=== PATIENT | male | born 1945 | race Caucasian/White ===

== ENCOUNTER → 2016-11-14 | Outpatient (CLI) | payer MEDICARE ==
--- NOTE | 2016-11-14 09:50 | US ---
EXAMINATION TYPE: US prostate transrectal DATE OF EXAM: 11/14/2016 9:34 AM COMPARISON: NONE CLINICAL HISTORY: R97.20 elevated psa. This examination was performed using the transrectal probe. EXAM MEASUREMENTS: Gland Size: 4.9 x 2.3 x 4.4cm Volume: 26.5ml Predicted PSA: 3.18 Actual PSA (if available):4.4 Heterogeneous peripheral zone with no distinct nodule visualized IMPRESSION: No distinct or suspicious lesions identified. Predicted PSA = volume x 0.12 ng/ml Calculated Volume = 0.5236 x L x W x H
== END | disposition home or self-care (01) ==
LOC: RADUSMAIN 08:58
PROVIDERS: ATTEND Family Medicine
DX: R97.20 Elevated prostate specific antigen [PSA] (principal)
CPT/HCPCS: 76872

== ENCOUNTER → 2018-07-24 | Outpatient (CLI) | payer MEDICARE ==
--- NOTE | 2018-07-24 18:55 | ECHOF ---
Referral Reason:I48.91 Unspecified atrial fibrillation MEASUREMENTS -------- HEIGHT: 180.3 cm WEIGHT: 82.1 kg BP: 149/73 IVSd: 1.1 cm (0.6 - 1.1) LVIDd: 4.3 cm (3.9 - 5.3) LVPWd: 1.0 cm (0.6 - 1.1) IVSs: 1.8 cm LVIDs: 2.7 cm LVPWs: 1.8 cm LA Diam: 3.2 cm (2.7 - 3.8) RVIDd: 3.0 cm (< 3.3) LAESV Index (A-L): 28.82 ml/m Ao Diam: 3.6 cm (2.0 - 3.7) EPSS: 0.3 cm MV E Juan: 0.91 m/s MV DecT: 212 ms MV A Juan: 0.53 m/s MV E/A Ratio: 1.72 AV maxP.37 mmHg AV meanP.87 mmHg RAP: 5.00 mmHg RVSP: 32.12 mmHg MV EF SLOPE: 67.95 mm/s (70 - 150) MV EXCURSION: 14.88 mm (> 18.000) FINDINGS -------- Sinus rhythm with extra systolic beats. This was a technically good study. The left ventricular size is normal. Left ventricular wall thickness is normal. Overall left vent ricular systolic function is normal with, an EF between 55 - 60 %. The right ventricle is normal in size. LA is midly dilated 29-33ml/m2. The right atrium is normal in size. Peak/mean gradient across the Aortic Valve is 33.37mmHg / 17.87mmHg. Normally functioning bioprosth etic valve. There is trivial lev-prosthetic regurgitation of the bioprosthetic aortic valve. The mitral valve leaflets are mildly thickened. Mild mitral annular calcification present. Mild m itral regurgitation is present. Mild tricuspid regurgitation present. Right ventricular systolic pressure is normal at < 35 mmHg. Trace/mild (physiologic) pulmonic regurgitation. The aortic root size is normal. 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 Normal inferior vena cava with normal inspiratory collapse consistent with estimated right atrial pre ssure of 5 mmHg. There is no pericardial effusion. CONCLUSIONS -------- 1. Sinus rhythm with extra systolic beats. 2. This was a technically good study. 3. The left ventricular size is normal. 4. Left ventricular wall thickness is normal. 5. Overall left ventricular systolic function is normal with, an EF between 55 - 60 %. 6. The right ventricle is normal in size. 7. LA is midly dilated 29-33ml/m2. 8. The right atrium is normal in size. 9. Peak/mean gradient across the Aortic Valve is 33.37mmHg / 17.87mmHg. 10. Normally functioning bioprosthetic valve. 11. There is trivial lev-prosthetic regurgitation of the bioprosthetic aortic valve. 12. The mitral valve leaflets are mildly thickened. 13. Mild mitral annular calcification present. 14. Mild mitral regurgitation is present. 15. Mild tricuspid regurgitation present. 16. Right ventricular systolic pressure is normal at < 35 mmHg. 17. Trace/mild (physiologic) pulmonic regurgitation. 18. The aortic root size is normal. 19. 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 20. Normal inferior vena cava with normal inspiratory collapse consistent with estimated right atrial pressure of 5 mmHg. 21. There is no pericardial effusion. RECONSTRUCTIVE DENTIST: Veda Lane RDCS
== END | disposition home or self-care (01) ==
LOC: RADECHMAIN 12:56
PROVIDERS: ATTEND Family Medicine
DX: I08.1 Rheumatic disorders of both mitral and tricuspid valves (principal); I48.91 Unspecified atrial fibrillation; Z95.2 Presence of prosthetic heart valve
CPT/HCPCS: 93306

== ENCOUNTER 2018-08-15 16:22 | Inpatient (IN) | payer MEDICARE ==
--- NOTE | 2018-08-15 16:31 | ED ---
Altered Mental Status HPI - General Stated Complaint: poss stroke Time Seen by Provider: 08/15/18 16:22 Source: EMS, RN notes reviewed, old records reviewed Mode of arrival: EMS - History of Present Illness Initial Comments: This is a 73-year-old male with history of atrial fibrillation renal failure syncope in the past under clap headache and history of hypertension who apparently was down his basement just prior to arrival by EMS today his urged him scream found him unresponsive on the floor. EMS arrived he had a glucose 131 he was very combative for 10-15 minutes he did require 5 mg of IM Versed. He demonstrated no focal deficits were was confused. He is brought here for evaluation. MD Complaint: confusion, decreased responsiveness - Related Data Home Medications Medication Instructions Recorded Confirmed Aspirin EC [Ecotrin] 325 mg PO HS 08/15/18 08/15/18 Verapamil [Isoptin] 80 mg PO DAILY 08/15/18 08/15/18 Allergies Allergy/AdvReac Type Severity Reaction Status Date / Time No Known Allergies Allergy Unverified 08/15/18 16:58 Review of Systems ROS Statement: Those systems with pertinent positive or pertinent negative responses have been documented in the HPI. ROS Other: All systems not noted in ROS Statement are negative. General Exam - General Exam Comments Initial Comments: This is a well-developed well-nourished obtunded male his pupils appear to be pinpoint. General appearance: obtunded Head exam: Present: atraumatic, normocephalic, normal inspection Eye exam: Present: other (Pupils are pinpoint he does demonstrate extraocular movement.) ENT exam: Present: normal exam, mucous membranes moist Neck exam: Present: normal inspection. Absent: tenderness, meningismus, lymphadenopathy Respiratory exam: Present: normal lung sounds bilaterally. Absent: respiratory distress, wheezes, rales, rhonchi, stridor Cardiovascular Exam: Present: regular rate, normal rhythm, normal heart sounds. Absent: systolic murmur, diastolic murmur, rubs, gallop, clicks GI/Abdominal exam: Present: soft, normal bowel sounds. Absent: distended, tenderness, guarding, rebound, rigid Extremities exam: Present: normal inspection, full ROM, normal capillary refill. Absent: tenderness, pedal edema, joint swelling, calf tenderness Back exam: Present: normal inspection Neurological exam: Present: alert, altered, CN II-XII intact, reflexes normal. Absent: motor sensory deficit Psychiatric exam: Present: normal affect, normal mood Skin exam: Present: warm, dry, intact, normal color. Absent: rash Course Vital Signs 08/15/18 08/15/18 08/15/18 16:31 16:47 17:00 Temperature 98.3 F Pulse Rate 95 97 82 Respiratory 16 16 16 Rate Blood Pressure 117/76 134/87 122/87 O2 Sat by Pulse 94 L 94 L 98 Oximetry - Reevaluation(s) Reevaluation #1: 08/15/18 16:37 Reevaluation patient reveals he is awake and alert he is confused as to where he hasn't how he got here he does not remember any incident in his basement prior to arrival. Reevaluation #2: 08/15/18 16:58 The patient remains awake and alert this time I did discuss the findings with the patient's she heard him without the screen that she heard in the basement he seemed to have some tonic-clonic activity of his upper extremities lasting several minutes. Per his she did have evidence in the past of activity leg deer and a headlight looks she states she lifted up and thought it might be consistent with temporal lobe seizures or lymphoid deficiencies. She did buy supplements for him and he has not had further symptoms until today over the past year. Reevaluation #3: 08/15/18 18:26 Reevaluation patient reveals he is awake alert oriented 3 no distress family members or present she has no prior history of seizure. Medical Decision Making - Medical Decision Making I did discuss findings with the patient family members were present patient be admitted for evaluation of new onset seizure. I did discuss case with the hospitalist covering Dr. Samuels. Neurology will be consulted - Lab Data Result diagrams: 08/15/18 16:25 08/15/18 16:25 Lab Results 08/15/18 08/15/18 08/15/18 Range/Units 16:25 16:25 16:25 WBC 7.2 (3.8-10.6) k/uL RBC 4.74 (4.30-5.90) m/uL Hgb 14.2 (13.0-17.5) gm/dL Hct 43.2 (39.0-53.0) % MCV 91.0 (80.0-100.0) fL MCH 30.0 (25.0-35.0) pg MCHC 32.9 (31.0-37.0) g/dL RDW 13.2 (11.5-15.5) % Plt Count 172 (150-450) k/uL Neutrophils % 72 % Lymphocytes % 18 % Monocytes % 5 % Eosinophils % 2 % Basophils % 1 % Neutrophils # 5.2 (1.3-7.7) k/uL Lymphocytes # 1.3 (1.0-4.8) k/uL Monocytes # 0.4 (0-1.0) k/uL Eosinophils # 0.2 (0-0.7) k/uL Basophils # 0.1 (0-0.2) k/uL PT (9.0-12.0) sec INR (<1.2) APTT (22.0-30.0) sec Sodium (137-145) mmol/L Potassium (3.5-5.1) mmol/L Chloride (98-107) mmol/L Carbon Dioxide (22-30) mmol/L Anion Gap mmol/L BUN (9-20) mg/dL Creatinine (0.66-1.25) mg/dL Est GFR (CKD-EPI)AfAm (>60 ml/min/1.73 sqM) Est GFR (CKD-EPI)NonAf (>60 ml/min/1.73 sqM) Glucose (74-99) mg/dL POC Glucose (mg/dL) (75-99) mg/dL POC Glu Shingle Carrier ID Calcium (8.4-10.2) mg/dL Total Bilirubin (0.2-1.3) mg/dL AST (17-59) U/L ALT (21-72) U/L Alkaline Phosphatase (38-126) U/L Ammonia 52 H (<30) umol/L Total Creatine Kinase 214 H (55-170) U/L CK-MB (CK-2) 2.2 (0.0-2.4) ng/mL CK-MB (CK-2) Rel Index 1.0 Troponin I <0.012 (0.000-0.034) ng/mL Total Protein (6.3-8.2) g/dL Albumin (3.5-5.0) g/dL Serum Alcohol mg/dL 08/15/18 08/15/18 08/15/18 Range/Units 16:25 16:25 16:47 WBC (3.8-10.6) k/uL RBC (4.30-5.90) m/uL Hgb (13.0-17.5) gm/dL Hct (39.0-53.0) % MCV (80.0-100.0) fL MCH (25.0-35.0) pg MCHC (31.0-37.0) g/dL RDW (11.5-15.5) % Plt Count (150-450) k/uL Neutrophils % % Lymphocytes % % Monocytes % % Eosinophils % % Basophils % % Neutrophils # (1.3-7.7) k/uL Lymphocytes # (1.0-4.8) k/uL Monocytes # (0-1.0) k/uL Eosinophils # (0-0.7) k/uL Basophils # (0-0.2) k/uL PT 10.7 (9.0-12.0) sec INR 1.1 (<1.2) APTT 21.8 L (22.0-30.0) sec Sodium 140 (137-145) mmol/L Potassium 4.4 (3.5-5.1) mmol/L Chloride 109 H (98-107) mmol/L Carbon Dioxide 17 L (22-30) mmol/L Anion Gap 14 mmol/L BUN 25 H (9-20) mg/dL Creatinine 1.38 H (0.66-1.25) mg/dL Est GFR (CKD-EPI)AfAm 58 (>60 ml/min/1.73 sqM) Est GFR (CKD-EPI)NonAf 50 (>60 ml/min/1.73 sqM) Glucose 104 H (74-99) mg/dL POC Glucose (mg/dL) 101 H (75-99) mg/dL POC Glu Shingle Carrier ID Sasha Aguilar Calcium 9.1 (8.4-10.2) mg/dL Total Bilirubin 0.6 (0.2-1.3) mg/dL AST 35 (17-59) U/L ALT 31 (21-72) U/L Alkaline Phosphatase 75 (38-126) U/L Ammonia (<30) umol/L Total Creatine Kinase (55-170) U/L CK-MB (CK-2) (0.0-2.4) ng/mL CK-MB (CK-2) Rel Index Troponin I (0.000-0.034) ng/mL Total Protein 6.8 (6.3-8.2) g/dL Albumin 4.0 (3.5-5.0) g/dL Serum Alcohol <10 mg/dL - EKG Data EKG shows normal: sinus rhythm (Normal sinus rhythm of 89. Interval 136 QRS duration 80 QT since QTC 362/440) - Radiology Data Radiology results: report reviewed (I did review the imaging and report no acute findings.), image reviewed Critical Care Time Critical Care Time: Yes Critical Care Time: 39 minutes of critical care time which includes initial monitoring the EMS run and discussed with paramedics history physical labs x-rays multiple reevaluation the patient review of old charting and imaging and lab work. Several discussions with family members discuss with the admitting physician admission orders and documentation the above is also did include review of old charting available Disposition Clinical Impression: Seizure, Renal insufficiency, Altered mental status Disposition: ADMITTED IP TO THIS [facility] Condition: Stable Referrals: Skyler Samuels MD [Primary Care Provider] - 1-2 days
[2018-08-15 16:49] LABS: Glucose,Whole Blood 101 mg/dL (75-99)
--- NOTE | 2018-08-15 16:56 | CT ---
EXAMINATION TYPE: CT brain wo con for TPA DATE OF EXAM: 08/15/2018 COMPARISON: 03/04/2015 HISTORY: POSS STROKE/NEURO DEFICIT CT DLP: 1205.4 mGycm Automated exposure control for dose reduction was used. FINDINGS: There is mild cerebral cortical atrophy. There is no mass effect nor midline shift. There is no sign of intracranial hemorrhage. Calvarium is intact. There are 3 to 4 mm tiny lacunar infarcts in the cau date nucleus bilaterally. 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 NO ACUTE INTRACRANIAL ABNORMALITY.
[2018-08-15 16:58] LABS: Basophils # (A) 0.1 k/uL (0-0.2); Basophils % (A) 1 %; Eosinophils # (A) 0.2 k/uL (0-0.7); Eosinophils % (A) 2 %; HCT 43.2 % (39.0-53.0); HGB 14.2 gm/dL (13.0-17.5); Lymphocytes # (A) 1.3 k/uL (1.0-4.8); Lymphocytes % (A) 18 %; MCHC 32.9 g/dL (31.0-37.0); Mean Platelet Volume 8.1; Monocytes # (A) 0.4 k/uL (0-1.0); Monocytes % (A) 5 %; Neutrophils # (A) 5.2 k/uL (1.3-7.7); Neutrophils % (A) 72 %; Platelet Count 172 k/uL (150-450); RBC 4.74 m/uL (4.30-5.90); RDW 13.2 % (11.5-15.5); WBC 7.2 k/uL (3.8-10.6)
[2018-08-15 17:12] LABS: INR 1.1 (<1.2); Prothrombin Time 10.7 sec (9.0-12.0)
[2018-08-15 17:16] LABS: ALT 31 U/L (21-72); AST 35 U/L (17-59); Alcohol <10 mg/dL; Alkaline Phosphatase 75 U/L (38-126); Anion Gap 14 mmol/L; Blood Urea Nitrogen 25 mg/dL (9-20); Calcium 9.1 mg/dL (8.4-10.2); Carbon Dioxide 17 mmol/L (22-30); Chloride 109 mmol/L (98-107); Glucose 104 mg/dL (74-99); Potassium 4.4 mmol/L (3.5-5.1); Sodium 140 mmol/L (137-145); Total Bilirubin 0.6 mg/dL (0.2-1.3); Total Protein 6.8 g/dL (6.3-8.2)
[2018-08-15 17:19] LABS: Creatine Kinase 214 U/L (55-170)
[2018-08-15 17:32] LABS: Creatine Kinase MB 2.2 ng/mL (0.0-2.4); Troponin I <0.012 ng/mL (0.000-0.034)
[2018-08-15 17:35] LABS: Partial Thromboplastin Time 21.8 sec (22.0-30.0)
[2018-08-15] MEDS ORDERED: NALOXONE 0.4 MG/ML 1 ML VIAL IV PRN (18:30)
[2018-08-15] MEDS ORDERED: ACETAMINOPHEN TAB 325 MG TAB PO PRN (18:30)
--- NOTE | 2018-08-15 18:47 | XR ---
EXAMINATION TYPE: XR chest 2V DATE OF EXAM: 08/15/2018 COMPARISON: 04/08/2016 HISTORY: Altered mental status TECHNIQUE: Frontal and lateral views of the chest are obtained. FINDINGS: There is no heart failure nor confluent pneumonic infiltrate. Costophrenic angles are tobi r. There are sternal wires. The bony thorax is intact. IMPRESSION: No active cardiopulmonary disease. Normal heart. No change.
[2018-08-15 19:21] LABS: Amphetamine Screen,Urine Not Detected (NotDetected); Barbiturate Screen,Urine Not Detected (NotDetected); Benzodiazepines Screen,Urine Not Detected (NotDetected); Cocaine Screen,Urine Not Detected (NotDetected); Methadone Screen, Urine Not Detected (NotDetected); Opiate Screen,Urine Not Detected (NotDetected); Oxycodone Screen, Urine Not Detected (NotDetected); Phencyclidine Screen,Urine Not Detected (NotDetected); Tricyclic Antidepressant,Urine Not Detected (NotDetected); Urn Cannabinoid Scrn Not Detected (NotDetected)
[2018-08-15 20:47] VITALS: BMI 24.3
[2018-08-15] MEDS: ASPIRIN 325 MG TAB PO SCH (20:59)
[2018-08-15] MEDS: SODIUM CHLORIDE 0.9% 1,000 ML IV SCH (21:31)
--- NOTE | 2018-08-15 21:59 | P.HPIM ---
History of Present Illness H&P Date: 08/15/18 Chief Complaint: new onset seizure 73-year-old male with history of A. fib status post ablation. Currently not on any anticoagulation Patient was at his baseline status of health he is very active on daily basis. However today while in the basement has upstairs heard weird sounds coming from her so went on and checked on him and she found him seizing he had contracture in his upper extremities and shaking of his lower extremities with his head turned to the right and up and frothing from his mouth she reported that this lasted for really long time she said she initiated a call to the 911 who put her on hold briefly she managed to go upstairs to get her purse and come downstairs and her was still seizing per her report. When he finally stopped seizing he was unresponsive and then later on he was confused EMS arrived and assisted him up the stairs from the basement where she with the noticed that he wasn't able to dorsiflex his left foot. The patient did not regain his alertness until he was in the emergency room. The patient doesn' t recall elected any of these events he denies any injuries due to the seizures he denies any tongue biting he denies loss of bladder or bowel control he denies any head injuries recently. Patient never had any seizures like this before. His blood sugar was checked by EMS and was 130. Patient recalls that a year ago he used to have moments where he with be doing some pill-rolling movements in his hands and lip smacking and staring in the blank and she wouldn't be able to get his attention during these events which are usually short-lived less than a minute this used to happen frequently until she started giving him some supplements to replenish vitamins and electrolytes and she said since then has disappeared she has mentioned os events to her doctor but no diagnosis was made. Currently patient feels comfortable denies any focal neurologic deficits denies any chest pain or trouble breathing denies any fevers or chills denies any headache changes in his vision or hearing. Patient only takes aspirin and verapamil at home. He takes verapamil to control his heartrate. He denies any drug of abuse he reports occasional alcohol and he denies any smoking. Patient is Jehovah witness and he would not like to have any blood products transfused. Patient did at that last night he had some nightmares and this morning when he woke up he felt tired and groggy a lot of benefit. Which is unusual for him. Review of Systems Pertinent positives as noted in HPI. 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 History of Any Multi-Drug Resistant Organisms: None Reported Past Surgical History: Tonsillectomy Additional Past Surgical History / Comment(s): Aortic valve replacement, bicep tendon surgery, shoulder surgery, carpal tunnel Past Anesthesia/Blood Transfusion Reactions: No Reported Reaction Past Psychological History: No Psychological Hx Reported Smoking Status: Former smoker Past Alcohol Use History: Occasional Past Drug Use History: None Reported - Past Family History Father Family Medical History: No Reported History, Cancer Additional Family Medical History / Comment(s): lung CA; Lung removed; blood clot from hip sx (per pt's ) Mother Family Medical History: CVA/TIA Medications and Allergies Home Medications Medication Instructions Recorded Confirmed Type Aspirin EC [Ecotrin] 325 mg PO HS 08/15/18 08/15/18 History Verapamil [Isoptin] 80 mg PO DAILY 08/15/18 08/15/18 History Allergies Allergy/AdvReac Type Severity Reaction Status Date / Time No Known Allergies Allergy Unverified 08/15/18 16:58 Physical Exam Vitals: Vital Signs Temp Pulse Pulse Resp BP BP Pulse Ox 08/15/18 20:00 97.7 F 78 17 159/83 97 08/15/18 19:33 97.7 F 87 17 159/83 96 08/15/18 19:00 98.4 F 82 16 135/85 98 08/15/18 17:00 82 16 122/87 98 08/15/18 16:47 97 16 134/87 94 L 08/15/18 16:31 98.3 F 95 16 117/76 94 L Intake and Output 08/15/18 08/15/18 08/15/18 06:59 14:59 22:59 Other: Voiding Method Urinal Weight 79 kg Constitutional: No acute distress, conversant, pleasant Eyes: Anicteric sclerae, moist conjunctiva, no lid-lag Pupils equal round reactive to light ENMT: NC/AT Oropharynx clear, no erythema, or exudates Neck: Supple, FROM, no masses, or JVD No carotid bruits No thyromegaly Lungs: Clear to auscultation Clear to percussion Normal respiratory effort, no accessory muscle use Cardiovascular: Heart regular in rate and rhythm, No murmurs, gallops, or rubs No peripheral edema Abdominal: Soft Nontender, no guarding, rebound or rigidity Abdomen moving with respiration Normoactive bowel sounds No hepatomegaly, No splenomegaly No palpable mass No abdominal wall hernia noted Skin: Diffusely looks dry and scaly patient has history of ichthyosis Areas of ecchymosis over his right hand Normal temperature, turgor No induration No subcutaneous nodules No ulcers Extremities: No digital cyanosis No clubbing Pedal pulses intact and symmetrical Radial pulses intact and symmetrical No calf tenderness Psychiatric: Alert and oriented to person, place and time Appropriate affect fair judgment Neuro Muscles Strength 5/5 in all 4 extremities Sensation to light touch grossly present throughout Cranial nerves II-XII grossly intact No focal sensory deficits Lymphatics: no palpable cervical or supraclavicular , or inguinal lymph nodes Results CBC & Chem 7: 08/15/18 16:25 08/15/18 16:25 Labs: Abnormal Lab Results - Last 24 Hours (Table) 08/15/18 08/15/18 08/15/18 Range/Units 16:25 16:25 16:25 APTT (22.0-30.0) sec Chloride 109 H (98-107) mmol/L Carbon Dioxide 17 L (22-30) mmol/L BUN 25 H (9-20) mg/dL Creatinine 1.38 H (0.66-1.25) mg/dL Glucose 104 H (74-99) mg/dL POC Glucose (mg/dL) (75-99) mg/dL Ammonia 52 H (<30) umol/L Total Creatine Kinase 214 H (55-170) U/L 08/15/18 08/15/18 Range/Units 16:25 16:47 APTT 21.8 L (22.0-30.0) sec Chloride (98-107) mmol/L Carbon Dioxide (22-30) mmol/L BUN (9-20) mg/dL Creatinine (0.66-1.25) mg/dL Glucose (74-99) mg/dL POC Glucose (mg/dL) 101 H (75-99) mg/dL Ammonia (<30) umol/L Total Creatine Kinase (55-170) U/L Thrombosis Risk Factor Assmnt - Choose All That Apply Any of the Below Risk Factors Present?: No Other Risk Factors: No Thrombosis Risk Factor Assessment Level: Very Low Risk Assessment and Plan Assessment: 73-year-old male with history of A. 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 Seizure was witnessed patient denies any history of head injury or any history of tonic-clonic seizures, did mention features suspicious for absence seizures in the past. Urine drug screen is negative, computed tomography scan of the head showed no acute abnormalities. patient is admitted for further workup and monitoring Plan: New onset seizure, tonic-clonic Seizure precautions Fall precautions Check EEG CT of the head no acute abnormalities Neuro consult Urine drug screen negative Follow-up electrolytes and blood glucose Acute kidney injury, most likely secondary to prerenal ATN Monitor urine output Follow-up renal function IV fluid hydration History of A. fib status post ablation not currently on any anticoagulation, CHADSVASC score of 1 Continue verapamil Currently in sinus rhythm History of carotid stenosis Check carotid ultrasound Congenital ichthyosis Currently stable Local emollient in lotions as needed Patient is Jehovah witness, refusing any blood products if needed. Surrogate decision-maker: *Patient CODE STATUS: Full code DVT prophylaxis: Heparin subcu 3 times a day Discussed with: Patient, ER, RN Anticipated discharge: 48-[address]: Home A total of 60 minutes was spent on the care of this complex patient more than 50 % of the time was spent in counseling and care coordination.
[2018-08-15] MEDS ORDERED: NITROGLYCERIN SL TABS 0.4 MG TAB SUBLINGUAL PRN (23:10)
[2018-08-15] MEDS ORDERED: MORPHINE SULFATE 2 MG/ML SYRINGE IVP STA (23:11)
--- NOTE | 2018-08-15 23:28 | US ---
EXAMINATION TYPE: US carotid duplex BILAT DATE OF EXAM: 08/15/2018 COMPARISON: NONE CLINICAL HISTORY: new onset seizure, h/o carotid stenosis. EXAM MEASUREMENTS: RIGHT: Peak Systolic Velocity (PSV) cm/sec ----- Right CCA: 65.3 ----- Right ICA: occluded ----- Right ECA: 131.9 ICA/CCA ratio: occluded RIGHT: End Diastole cm/sec ----- Right CCA: 11.5 ----- Right ICA: occluded ----- Right ECA: 25.4 LEFT: Peak Systolic Velocity (PSV) cm/sec -----Left CCA: 129.8 ----- Left ICA: 118.0 ----- Left ECA: 84.5 ICA/CCA ratio: 0.9 LEFT: End Diastole cm/sec ----- Left CCA: 23.4 ----- Left ICA: 27.4 ----- Left ECA: 19.5 VERTEBRALS (direction of flow): Right Vertebral: Antegrade Left Vertebral: Antegrade Rhythm: Normal Right ICA occluded. IMPRESSION: There is antegrade flow in the vertebral arteries. There is no flow demonstrated in the right internal carotid artery. Slight elevated velocity right external carotid artery consistent with 50-70% stenosis. There is 50-70% stenosis in the left common carotid artery distally. Criteria for Assigning % of Stenosis / Diameter reduction (Estimation based on the indirect measurements of the internal carotid artery velocities (ICA PSV). 1. Normal (no stenosis)=ICA PSV < 125 cm/s: ratio < 2.0: ICA EDV<40 cm/s. 2. Less than 50% stenosis=ICA PSV < 125 cm/s: ratio < 2.0: ICA EDV<40 cm/s. 3. 50 to 69% stenosis=ICA PSV of 125 to 230 cm/s: ration 2.0 ? 4.0: ICA EDV 40-100 cm/s. 4. Greater than 70% stenosis to near occlusion= ICA PSV > 230 cm/s: ratio > 4.0: ICA EDV > 100 cm/s. 5. Near occlusion= ICA PSV velocities may be low or undetectable: variable ratio and ICA EDV. 6. Total occlusion=unable to detect flow.
[2018-08-15] MEDS: HEPARIN SODIUM,PORCINE 5,000 UNIT/ML 1 ML VIAL SQ SCH (23:41)
[2018-08-16 05:55] LABS: Basophils # (A) 0.1 k/uL (0-0.2); Basophils % (A) 1 %; Eosinophils # (A) 0.3 k/uL (0-0.7); Eosinophils % (A) 4 %; HGB 13.4 gm/dL (13.0-17.5); Lymphocytes # (A) 1.2 k/uL (1.0-4.8); Lymphocytes % (A) 18 %; MCH 29.6 pg (25.0-35.0); MCHC 32.8 g/dL (31.0-37.0); MCV 90.3 fL (80.0-100.0); Mean Platelet Volume 7.2; Monocytes # (A) 0.6 k/uL (0-1.0); Monocytes % (A) 8 %; Neutrophils # (A) 4.6 k/uL (1.3-7.7); Neutrophils % (A) 67 %; Platelet Count 151 k/uL (150-450); RBC 4.54 m/uL (4.30-5.90); RDW 13.1 % (11.5-15.5); WBC 6.9 k/uL (3.8-10.6)
[2018-08-16 06:08] LABS: Albumin 3.4 g/dL (3.5-5.0); Calcium 9.1 mg/dL (8.4-10.2); Potassium 4.9 mmol/L (3.5-5.1); Total Bilirubin 0.6 mg/dL (0.2-1.3); Total Protein 6.1 g/dL (6.3-8.2)
[2018-08-16] MEDS: VERAPAMIL 80 MG TAB PO SCH (07:53)
[2018-08-16] MEDS ORDERED: LORazepam 2 MG/ML INJ IV PRN (09:08)
--- NOTE | 2018-08-16 11:28 | P.PN ---
Subjective Progress Note Date: 08/16/18 Principal diagnosis: Seizure Patient was seen and examined. No acute events overnight. No further seizure- like episodes since admission. Daughter patient reports multiple seizure-like attacks in the past. These episodes were different in the past, characterized by staring episodes and unresponsiveness. Patient reported no postictal confusion with these episodes. Daughter reported with these episodes happened after neck manipulation from a chiropractor. He denies any numbness weakness tingling of the extremities. No chest pain, shortness of breath or palpitations. Objective - Vital Signs Vital signs: Vital Signs Temp 98.1 F 08/16/18 07:58 Pulse 77 08/16/18 07:58 Resp 17 08/16/18 07:58 BP 134/74 08/16/18 07:58 Pulse Ox 98 08/16/18 07:58 Intake & Output 08/15/18 08/16/18 08/16/18 18:59 06:59 18:59 Intake Total 1100 240 Output Total 600 Balance 500 240 Weight 81.647 kg 86 kg Intake: Intake, IV Titration 600 Amount Sodium Chloride 0.9% 1, 600 000 ml @ 100 mls/hr IV . Q10H [facility] Rx#:[id number] Oral 500 240 Output: Urine 600 Other: Voiding Method Urinal Urinal - Exam General: [non toxic], [no distress], [appears at stated age] Derm: [warm], [dry] Head: [atraumatic], [normocephalic], [symmetric] Eyes: [EOMI], [no lid lag], [anicteric sclera] Mouth: [no lip lesion], [mucus membranes moist] Cardiovascular: [S1S2 reg], [no murmur], [positive posterior tibial pulse bilateral], Lungs: [CTA bilateral], [no rhonchi, no rales] , [no accessory muscle use] Abdominal: [soft], [ nontender to palpation], [no guarding], [no appreciable organomegaly] Ext: [no gross muscle atrophy], [no edema], [no contractures] Neuro: [ CN II-XI grossly intact], [no focal neuro deficits] Psych: [Alert], [oriented], [appropriate affect] - Labs CBC & Chem 7: 08/16/18 05:33 08/16/18 05:33 Labs: Abnormal Lab Results - Last 24 Hours (Table) 08/15/18 08/15/18 08/15/18 Range/Units 16:25 16:25 16:25 APTT (22.0-30.0) sec Chloride 109 H (98-107) mmol/L Carbon Dioxide 17 L (22-30) mmol/L BUN 25 H (9-20) mg/dL Creatinine 1.38 H (0.66-1.25) mg/dL Glucose 104 H (74-99) mg/dL POC Glucose (mg/dL) (75-99) mg/dL Ammonia 52 H (<30) umol/L Total Creatine Kinase 214 H (55-170) U/L Total Protein (6.3-8.2) g/dL Albumin (3.5-5.0) g/dL 08/15/18 08/15/18 08/16/18 Range/Units 16:25 16:47 05:33 APTT 21.8 L (22.0-30.0) sec Chloride 111 H (98-107) mmol/L Carbon Dioxide (22-30) mmol/L BUN 24 H (9-20) mg/dL Creatinine 1.43 H (0.66-1.25) mg/dL Glucose (74-99) mg/dL POC Glucose (mg/dL) 101 H (75-99) mg/dL Ammonia (<30) umol/L Total Creatine Kinase (55-170) U/L Total Protein 6.1 L (6.3-8.2) g/dL Albumin 3.4 L (3.5-5.0) g/dL Assessment and Plan Assessment: Assessment and Plan 1. Seizure like activity: Unprovoked, multiple different "staring-like" episodes in the past. Also happend twice after neck manipulations. Concerns for TIA/CVA. Will do CVA workup. CT brain shows small lacunar infarcts with no acute intracranial abnormalities. CUS shows 100% in the R internal carotid and 50-70% in L common carotid artery. Echocardiogram shows EF of 55-60%. Neurochecks, Fall and Seizure precautions. Continue ASA 325 mg PO QD and Lipitor 40 mg PO QHS. FU EEG, MRI brain, MRA head, Lipid panel and A1c. FU Neurology consult, PT/OT 2. Carotid stenosis: Re-displayed on CUS - 100% in the R internal carotid and 50 -70% in L common carotid artery. FU MRA head, Vascular Sx consult. 3. TRISH: BUN 24 Cr 1.42, possibly on CKD. Continue NS at 100 cc/h. Avoid nephrotoxins. Daily BMP 4. Rhabdomyolysis: CPK 214. Mild, likely secondary to seizure. Continue NS at 100 cc/h. Will recheck tomorrow. 4. Atrial fibrillation: s/p ablation. Stable. Continue Verapamil 80 mg PO QD. Telemetry monitoring. Keep Mg > 2, K > 4. 6. DVT Prophylaxis: Heparin 5000 units SUBCUT TID. Neurology consult pending. Stroke workup underway for possible TIA. Vascular surgery also on consult for carotid stenosis.
[2018-08-16] MEDS: HEPARIN SODIUM,PORCINE 5,000 UNIT/ML 1 ML VIAL SQ SCH ×3 (12:17→23:18)
--- NOTE | 2018-08-16 15:12 | MR ---
EXAMINATION TYPE: MR brain wo con DATE OF EXAM: 08/16/2018 COMPARISON: 08/15/2018 CT brain HISTORY: New onset seizure/CVA CONTRAST: Performed utilizing 0 mL intravenous Gadavist gadolinium contrast. TECHNIQUE: Multiplanar, multiecho imaging on a 3.0 Annabelle magnet is performed through the brain. Stud y is performed within 24 hours of arrival to the hospital. The craniovertebral junction is normal. The pituitary is normal. Diffusion-weighted imaging is performed. No abnormal hyperintensity is present to suggest an acute i ntracranial infarct or acute ischemic change. There are scattered periventricular hyperintensities on T2 and inversion recovery weighted sequences within the periventricular white matter, subcortical white matter of the left temporal lobe, couple s mall subcortical white matter changes in the right temporal lobe, into the centrum semiovale bilatera lly. These are nonspecific. Microvascular ischemic change could be considered. Other etiologies remai n within the differential. Old lacunar infarct within the left caudate head is evident. Ventricles and sulci are prominent for the patient age. IMPRESSIONS: 1. Atrophy with periventricular white matter ischemic type changes. 2. No suspicious changes to suggest acute ischemic changes.
--- NOTE | 2018-08-16 15:21 | MR ---
EXAMINATION TYPE: MR angio head wo con DATE OF EXAM: 08/16/2018 COMPARISON: HISTORY: New onset seizure/CVA CONTRAST: None TECHNIQUE: Multiplanar multiecho imaging on a 3.0 Annabelle magnet is performed through the [place] of [facility]. 3-D [id number] imaging is performed. Source images are reviewed on the computer in the axi al plane. Reconstructed images rotating on the computer are reviewed. FINDINGS: The right internal carotid artery is obstructed. Retrograde flow within the distal most rig ht internal carotid artery from a patent anterior communicating artery opacifies the right ophthalmic artery. Left ophthalmic artery appears normal. The left distal internal carotid artery bifurcates no rmally into A1 and M1 segments. Left M2 segments are normal. A2 segments appear normal. There is a patent left posterior communicating artery. Posterior cerebral vasculature appears normal. Basilar artery is unremarkable. The right vertebral artery is dominant. Note is made of patent right external carotid artery vessels. IMPRESSIONS: 1. Occlusion of the right internal carotid artery. Retrograde flow into the distal internal carotid a rtery into the ophthalmic artery is observed from a crossover flow from the anterior communicating ar fabiola which is patent. There is a patent posterior left communicating artery. Crossover flow opacifies the right middle cerebral artery branches.
--- NOTE | 2018-08-16 19:24 | P.CNNES ---
History of Present Illness Consult date: 08/16/18 History of Present Illness: The patient is a 73-year-old right-handed white male who states he was watching television when his hands started give becoming cold so he went to lay down to take a nap. He states the next thing he knew he woke up in the hospital. The patient's states that she heard a groaning grunting sound and when she came downstairs he was sitting in the recliner with his head turned to the right and his eyes rolled up and his eyes and head turn to the right. He was flexing both arms and he had tonic-clonic activity of upper extremities. This lasted for 2 or 3 minutes and afterward he slept and had gurgling respirations. EMS was called and he started to move and open his eyes but became soon combative. 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 Also 4 years ago he had seizure-like activity when he had episode of passing out with eyes wide open. He had 2 episodes like that in 1 day. The patient has a history of known right carotid occlusion. Patient states that 4 days ago he did go to the chiropractor. Patient also gives history of episodes where he has dj vu experienced and episodes of blank stares associated with automatisms of his hand and lips. 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 History of Any Multi-Drug Resistant Organisms: None Reported Past Surgical History: Tonsillectomy Additional Past Surgical History / Comment(s): Aortic valve replacement, bicep tendon surgery, shoulder surgery, carpal tunnel Past Anesthesia/Blood Transfusion Reactions: No Reported Reaction Past Psychological History: No Psychological Hx Reported Smoking Status: Former smoker Past Alcohol Use History: Occasional Past Drug Use History: None Reported - Past Family History Father Family Medical History: No Reported History, Cancer Additional Family Medical History / Comment(s): lung CA; Lung removed; blood clot from hip sx (per pt's ) Mother Family Medical History: CVA/TIA Medications and Allergies Home Medications Medication Instructions Recorded Confirmed Type Aspirin EC [Ecotrin] 325 mg PO HS 08/15/18 08/15/18 History Verapamil [Isoptin] 80 mg PO DAILY 08/15/18 08/15/18 History Allergies Allergy/AdvReac Type Severity Reaction Status Date / Time No Known Allergies Allergy Unverified 08/15/18 16:58 Physical Examination - Vital Signs Vital Signs: Vital Signs Temp Pulse Pulse Resp BP BP Pulse Ox 08/16/18 16:00 97.8 F 75 16 158/80 99 08/16/18 12:25 97.7 F 78 16 131/73 97 08/16/18 07:58 98.1 F 77 16 134/74 98 08/16/18 04:00 98.2 F 71 17 140/85 96 08/16/18 00:00 98.0 F 74 17 105/62 95 08/15/18 20:00 97.7 F 78 17 159/83 97 08/15/18 19:33 97.7 F 87 17 159/83 96 08/15/18 19:00 98.4 F 82 16 135/85 98 Intake and Output 08/16/18 08/16/18 08/16/18 06:59 14:59 22:59 Intake Total 1100 640 Output Total 600 600 Balance 500 40 Intake: Intake, IV Titration 600 Amount Sodium Chloride 0.9% 1, 600 000 ml @ 100 mls/hr IV . Q10H [facility] Rx#:[id number] Oral 500 640 Output: Urine 600 600 Other: Voiding Method Urinal Urinal Urinal Weight 86 kg - Constitutional General appearance: average body habitus - EENT EENT: PERRL, vision intact - Respiratory Respiratory: lungs clear - Cardiovascular Cardiovascular: regular rate, normal S1, normal S2 - Neurologic Neurologic examination: Mental status is awake alert and oriented 3. His speech is fluent there is no a aphasia or dysarthria next Cranial nerve examination: Cranial nerves II through XII are grossly intact next Motor examination: 5 out of 5 throughout Sensory examination: Intact to light touch Coordination: Intact DTRs: Intact symmetric Results - Laboratory Findings CBC and BMP: 11/08/18 05:33 08/16/18 05:33 Abnormal Lab Findings: Abnormal Labs 08/15/18 08/15/18 08/15/18 16:25 16:25 16:25 APTT Chloride 109 H Carbon Dioxide 17 L BUN 25 H Creatinine 1.38 H Glucose 104 H POC Glucose (mg/dL) Ammonia 52 H Total Creatine Kinase 214 H Total Protein Albumin 08/15/18 08/15/18 08/16/18 16:25 16:47 05:33 APTT 21.8 L Chloride 111 H Carbon Dioxide BUN 24 H Creatinine 1.43 H Glucose POC Glucose (mg/dL) 101 H Ammonia Total Creatine Kinase Total Protein 6.1 L Albumin 3.4 L Assessment and Plan (1) Generalized convulsive seizure Current Visit: Yes Status: Acute SNOMED Code(s): 646333891 (2) Carotid occlusion, right Current Visit: Yes Status: Acute SNOMED Code(s): 842909503158112 (3) Left carotid stenosis Current Visit: Yes Status: Acute Code(s): I65.22 - OCCLUSION AND STENOSIS OF LEFT CAROTID ARTERY SNOMED Code(s): 168462352591434 Plan: The patient is a 73-year-old man who had an episode of generalized convulsion yesterday. The patient gives history of prior episodes highly suspicious for complex partial epilepsy. Patient will be started on anticonvulsant medication , Keppra. He was advised of the [place] law regarding driving and operating motorized vehicles and told that he cannot operate a motorized vehicle until seizure-free for 6 months. He was also advised to avoid power tools and heavy machinery. He has had an MRI of the brain which showed atrophy was also evidence of an old lacunar infarct in the left caudate head. Continue aspirin 325 mg daily
[2018-08-16] MEDS: SODIUM CHLORIDE 0.9% 1,000 ML IV SCH (19:53)
[2018-08-16] MEDS: ASPIRIN 325 MG TAB PO SCH (20:00)
--- NOTE | 2018-08-16 20:56 | CONS ---
CONSULTATION This patient is a 73-year-old gentleman who has been admitted to [facility] with a history of seizure disorder which happened at home, and he was brought in to the hospital. No history of TIA or amaurosis fugax. The patient's blood sugar was 130. Patient has a history of atrial fibrillation. Patient also has a history of being [employer]an he would not take any blood product. PERSONAL HISTORY: Former smoker. PHYSICAL EXAMINATION: Patient was seen in his room. He was lying comfortably in bed. NECK: Supple. No bruit appreciated. CHEST: Clear to auscultation. ABDOMEN: Soft. Femoral pulses present. CENTRAL NERVOUS SYSTEM: Oriented to time and place. Normal motor function of upper lower extremities. Patient had an ultrasound of the neck which showed right side totally occluded, left side 50% to 79%. CT of the brain shows no infarct, chronic small vessel disease. 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 PLAN: At this point there is no role for surgical intervention. Most likely this is an incidental finding. Since patient has a right-side occlusion and left side is 50% to 79%, he needs close followup. Discussed with the and the family. I will follow him in my office in 2 weeks. MMODL / IJN: [id number] /
[2018-08-16] MEDS ORDERED: ATORVASTATIN 40 MG TAB PO SCH (21:00)
[2018-08-17 05:08] VITALS: RESP 18
[2018-08-17 06:58] LABS: Basophils # (A) 0.1 k/uL (0-0.2); Basophils % (A) 1 %; Eosinophils # (A) 0.4 k/uL (0-0.7); Eosinophils % (A) 6 %; HCT 45.9 % (39.0-53.0); HGB 14.6 gm/dL (13.0-17.5); Lymphocytes # (A) 1.5 k/uL (1.0-4.8); Lymphocytes % (A) 24 %; MCH 29.4 pg (25.0-35.0); MCHC 31.9 g/dL (31.0-37.0); MCV 92.2 fL (80.0-100.0); Monocytes # (A) 0.5 k/uL (0-1.0); Monocytes % (A) 8 %; Neutrophils # (A) 3.8 k/uL (1.3-7.7); Neutrophils % (A) 59 %; Platelet Count 166 k/uL (150-450); RBC 4.97 m/uL (4.30-5.90); RDW 13.2 % (11.5-15.5); WBC 6.4 k/uL (3.8-10.6)
[2018-08-17 07:11] LABS: Calcium 9.3 mg/dL (8.4-10.2); Potassium 4.8 mmol/L (3.5-5.1)
[2018-08-17] MEDS: HEPARIN SODIUM,PORCINE 5,000 UNIT/ML 1 ML VIAL SQ SCH (08:08)
[2018-08-17] MEDS: VERAPAMIL 80 MG TAB PO SCH (08:08)
--- NOTE | 2018-08-17 08:10 | P.DS ---
Providers Date of admission: 08/15/18 18:33 Expected date of discharge: 08/17/18 Attending physician: Mel Jj MD Consults: 08/15/18 18:31 Consult Physician Routine Consulting Provider: Francia Ponce Consult Reason/Comments: New-onset seizure Do you want consulting provider notified?: Yes 08/16/18 11:26 Consult Physician Urgent Consulting Provider: Carroll Carver Consult Reason/Comments: Carotid stenosis Do you want consulting provider notified?: Yes Primary care physician: Skyler Samuels - Discharge Diagnosis(es) (1) Carotid stenosis Current Visit: Yes Status: Acute (2) Rhabdomyolysis Current Visit: Yes Status: Acute (3) Atrial fibrillation Current Visit: Yes Status: Acute (4) Hyperammonemia Current Visit: Yes Status: Acute (5) Generalized convulsive seizure Current Visit: Yes Status: Acute (6) Renal insufficiency Current Visit: Yes Status: Acute Hospital Course: 73-year-old male with history of A. fib status post ablation. Currently not on any anticoagulation Patient was at his baseline status of health he is very active on daily basis. However today while in the basement has upstairs heard weird sounds coming from her so went on and checked on him and she found him seizing he had contracture in his upper extremities and shaking of his lower extremities with his head turned to the right and up and frothing from his mouth she reported that this lasted for really long time she said she initiated a call to the 911. The patient did not regain his alertness until he was in the emergency room. With regard to seizure-like activity, there is concern for TIA or stroke given that this has happened 2 previous times after neck manipulations. Stroke workup was initiated. CT brain showed small lacunar infarcts with no intracranial abnormalities. Carotid ultrasound showed 100% of the right internal carotid and 50-70% of the left common carotid artery. Echocardiogram showed ejection fraction of 55-60%. MRI brain showed no acute ischemic changes. MRA showed occlusion of the right internal carotid artery with retrograde flow. Vascular surgery was consulted at this time and recommended no surgical intervention and to close outpatient follow-up. Neurology was consulted as well and diagnosed the patient with complex seizures. They recommended no driving. He was started on Keppra 750 mg by mouth twice a day. EEG was performed and pending at the time of discharge. Patient seen and examined. No acute events overnight. No seizure-like activity since being admitted. He denies any chest pain, shortness of breath or palpitations. He is looking forward to going home. General: [non toxic], [no distress], [appears at stated age] Derm: [warm], [dry] Head: [atraumatic], [normocephalic], [symmetric] Eyes: [EOMI], [no lid lag], [anicteric sclera] Mouth: [no lip lesion], [mucus membranes moist] Cardiovascular: [S1S2 reg], [no murmur], [positive DP pulse bilateral] Lungs: [CTA bilateral], [no rhonchi, no rales] , [no accessory muscle use] Abdominal: [soft], [ nontender to palpation], [no guarding], [no appreciable organomegaly] Ext: [no gross muscle atrophy], [no edema], [no contractures] Neuro: [ CN II-XI grossly intact], [no focal neuro deficits] Psych: [Alert], [oriented], [appropriate affect] Assessment and Plan 1. Complex seizures: Unprovoked, multiple different "staring-like" episodes in the past. Also happend twice after neck manipulations. Concerns for TIA/CVA. Will do CVA workup. CT brain shows small lacunar infarcts with no acute intracranial abnormalities. CUS shows 100% in the R internal carotid and 50-70% in L common carotid artery. Echocardiogram shows EF of 55-60%. MRI brain negative for acute CVA. MRA confirms carotid US with retrograde flow. Lipid panel shows T. Chol 198, LDL 135 and HDL 37. Started on Keppra 750 mg PO BID as per Neuro. Neurochecks, Fall and Seizure precautions. Continue ASA 325 mg PO QD and Lipitor 40 mg PO QHS. FU EEG, A1c. FU Neurology consult, PT/OT 2. Carotid stenosis: Re-displayed on CUS - 100% in the R internal carotid and 50 -70% in L common carotid artery. Confirmed with MRA head. Vascular Sx consulted , no further intervention, FU outPT. 3. TRISH: BUN 24 to 23 Cr 1.42 to 1.33 GFR 49 to 53, possibly on CKD. Continue NS at 100 cc/h. Avoid nephrotoxins. FU BMP in outPT setting. 4. Elevated Ammonia: Level of 52. Patient is asymptomatic. Resolved on discharge. 5. Rhabdomyolysis: CPK 214. Mild, likely secondary to seizure. Encourage PO fluid intake. 6. Atrial fibrillation: s/p ablation. Stable. Continue Verapamil 80 mg PO QD. Telemetry monitoring. Keep Mg > 2, K > 4. 7. DVT Prophylaxis: Heparin 5000 units SUBCUT TID. CVA workup negative. Patient advised against driving. He has been started on Keppra. EEG read pending. PT eval pending. Likely DC today. This complex discharge took > 30 minutes. Pertinent Studies: CT brain MRI brain MRA head Echocardiogram EEG Carotid US CXR Patient Condition at Discharge: Stable Plan - Discharge Summary Discharge Rx Participant: No New Discharge Prescriptions: New Atorvastatin [Lipitor] 40 mg PO HS #30 tab levETIRAcetam [Keppra] 750 mg PO Q12HR #60 tab Continue Verapamil [Isoptin] 80 mg PO DAILY Aspirin EC [Ecotrin] 325 mg PO HS Discharge Medication List Aspirin EC [Ecotrin] 325 mg PO HS 08/15/18 [History] Verapamil [Isoptin] 80 mg PO DAILY 08/15/18 [History] Atorvastatin [Lipitor] 40 mg PO HS #30 tab 08/17/18 [Rx] levETIRAcetam [Keppra] 750 mg PO Q12HR #60 tab 08/17/18 [Rx] Follow up Appointment(s)/Referral(s): Skyler Samuels MD [Primary Care Provider] - 1-2 days Francia Ponce MD [STAFF PHYSICIAN] - 1 Week Carroll Carver MD [STAFF PHYSICIAN] - 2 Weeks Ambulatory/Diagnostic Orders: Basic Metabolic Panel [LAB.AMB] Time Frame: 3 Days, Location: None Selected Patient Instructions/Handouts: Recurrent Seizures in Adults (DC) Activity/Diet/Wound Care/Special Instructions: Diet: HEART healthy Please follow up with your primary care provider within 1-2 days of discharge. Please obtain a BMP blood draw within 3 days of discharge. The results will be followed up with your Primary care provider. Please follow up with Neurology Dr. Ponce with the appointment given to you. Please follow up with Vascular Surgery Dr. Carver with the appointment given to you. Please do not drive at this time until follow up with your Neurologist. Please take all medications as advised. Discharge Disposition: HOME SELF-CARE
[2018-08-17 08:15] VITALS: BP 142/89; PULSE 87; TEMP 97.7
[2018-08-17 17:04] LABS: Hemoglobin A1C 5.6 % (4.0-6.0)
--- NOTE | 2018-08-18 17:19 | EEG ---
ELECTROENCEPHALOGRAM REPORT DATE OF EE08/16/2018. REFERRING PHYSICIAN: Dr. Murry. CONSULTING INTERPRETING PHYSICIAN: Dr. Patricia Ponce ELECTROENCEPHALOGRAPHIC EXAMINATION REPORT: INDICATION FOR EXAMINATION: This patient is a 73-year-old male being evaluated for new onset seizure. Patient had a witnessed seizure at home noted by his . Patient has had multiple passing-out spells over the last several months. AGE: 73. EEG FINDINGS: A routine 21 channel awake digital EEG recording was accomplished utilizing the 10-20 international system with bipolar and referential montages. The background activity in the most alert resting state consists of a low to medium amplitude, fairly well- developed well sustained 7 Hz activity over the posterior head regions. This posterior rhythm attenuates to eye opening. There is a moderate amount of low amplitude 18-20 Hz beta activity seen in a generalized fashion. Muscle and movement artifact was observed on a few occasions during the tracing. Hyperventilation was not performed. Photic stimulation at flash frequencies of 2-30 Hz produced a minimal occipital driving response. No epileptiform discharges were seen. IMPRESSION: This EEG is within normal limits for the patient's age. The EEG failed to reveal any focal, lateralized, or epileptiform abnormalities. If a seizure disorder remains a strong clinical suspicion, then would consider a sleep deprived EEG for further evaluation. Clinical correlation is recommended. MMODL / BETHN: [id number] /
--- NOTE | 2018-08-22 09:32 | CDI ---
Last Revision, September 2017 Documentation Clarification Form Date: 08/22/18 From: MARIANA Abarca Phone: If you have question, contact Shilpa Garciajan, at [phone] M-F 8:30 am to 6pm. Admit Date: 08/15/2018 6:33:00 PM Patient Name: Mateo Escobar Visit Number: [id number] Discharge Date: 08/15/18 ATTENTION: The Clinical Documentation Specialists (CDI) and [facility] Coding Staff appreciate your assistance in clarifying documentation. Please respond to the clarification below the line at the bottom and electronically sign. The CDI & [facility] Coding staff will review the response and follow-up if needed. Please note: Queries are made part of the Legal Health Record. If you have any questions, please contact the author of this message via ITS. Mel Ortiz MD According to the progress note from 08/16 and Discharge Summary the patient has TRISH possibly on CKD. Current BUN: 24 Current CR: 1.42, went up to 1.33 Current GFR: 49 to 53 In order to capture the severity of condition, please clarify if the condition signifies: CKD Stage 1 (GFR > 90) CKD Stage 2 (GFR 60-89) CKD Stage 3 (GFR 30-59) CKD Stage 4 (GFR 15-29) CKD Stage 5 (GFR <15) Other, please specify Unable to determine stage 3 MTDD
== END 2018-08-17 13:20 | disposition home or self-care (01) | DRG 100 ==
LOC: EC 16:22 → 3SCARD 18:33
PROVIDERS: ADMIT Family Medicine; ATTEND Family Medicine
DX: G40.209 Localization-related (focal) (partial) symptomatic epilepsy and epileptic syndromes with complex partial seizures, not intractable, without status epilepticus (principal); N17.0 Acute kidney failure with tubular necrosis; E72.20 Disorder of urea cycle metabolism, unspecified; M62.82 Rhabdomyolysis; E87.2 Acidosis; N18.3 Chronic kidney disease, stage 3 (moderate); I12.9 Hypertensive chronic kidney disease with stage 1 through stage 4 chronic kidney disease, or unspecified chronic kidney disease; I65.23 Occlusion and stenosis of bilateral carotid arteries; I48.91 Unspecified atrial fibrillation; Q80.9 Congenital ichthyosis, unspecified; Z95.2 Presence of prosthetic heart valve; Z87.891 Personal history of nicotine dependence; Z79.82 Long term (current) use of aspirin; Z79.899 Other long term (current) drug therapy; Z80.1 Family history of malignant neoplasm of trachea, bronchus and lung
CPT/HCPCS: 36415; 70450; 70544; 70551; 71046; 80048; 80053; 80061; 80306; 80320; 82140; 82550; 82553; 83036; 83735; 84443; 84484; 85025; 85610; 85730; 93005; 93880; 95816; 99291

== ENCOUNTER 2019-09-16 09:45 | Observation (INO) | payer OTHER, MEDICARE ==
[2019-09-16] MEDS ORDERED: SODIUM CHLORIDE 0.9% 500 ML 500 ML IV STA (09:50)
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
[2019-09-16 10:00] LABS: Glucose,Whole Blood 142 mg/dL (75-99)
[2019-09-16 10:08] LABS: Basophils # (A) 0.1 k/uL (0-0.2); Basophils % (A) 1 %; Eosinophils # (A) 0.3 k/uL (0-0.7); Eosinophils % (A) 4 %; HCT 42.4 % (39.0-53.0); HGB 14.3 gm/dL (13.0-17.5); Lymphocytes # (A) 1.4 k/uL (1.0-4.8); Lymphocytes % (A) 22 %; MCH 30.5 pg (25.0-35.0); MCHC 33.8 g/dL (31.0-37.0); MCV 90.1 fL (80.0-100.0); Mean Platelet Volume 7.2; Monocytes # (A) 0.3 k/uL (0-1.0); Monocytes % (A) 5 %; Neutrophils # (A) 4.1 k/uL (1.3-7.7); Neutrophils % (A) 65 %; Platelet Count 163 k/uL (150-450); RBC 4.71 m/uL (4.30-5.90); RDW 12.5 % (11.5-15.5); WBC 6.3 k/uL (3.8-10.6)
[2019-09-16 10:22] LABS: Albumin 3.8 g/dL (3.5-5.0); Potassium 4.3 mmol/L (3.5-5.1); Total Bilirubin 0.7 mg/dL (0.2-1.3); Total Protein 6.7 g/dL (6.3-8.2)
[2019-09-16] MEDS ORDERED: SODIUM CHLORIDE 0.9% 1,000 ML IV SCH (10:30)
[2019-09-16] MEDS ORDERED: SODIUM CHLORIDE 0.9% 500 ML 500 ML IV ONE (10:30)
--- NOTE | 2019-09-16 10:38 | CT ---
EXAMINATION TYPE: CT brain wo con for TPA DATE OF EXAM: 09/16/2019 COMPARISON: 08/15/2018 INDICATION: Altered mental status DLP: 1547.3 mGycm, Automated exposure control for dose reduction was used. CONTRAST: None CT of the brain is performed utilizing 3 mm thick sections through the posterior fossa and 3 mm thick sections through the remaining calvarium. Study is performed within 24 hours of arrival to the hosp ital. No abnormal hyperdensity is present to suggest an acute intracranial hemorrhage. No mass lesion is evident. Small vascular calcification is likely present in the right parietal sulcu s. No acute infarcts are evident. There is mild periventricular white matter hypodensity, likely on the basis of chronic white matter ischemic changes. Ventricles and sulci are appropriate for the patient age. Paranasal sinuses and mastoid air cells within the [id number] are clear. IMPRESSIONS: 1. No acute intracranial process. 2. Periventricular white matter hypodensity, likely on the basis of chronic white matter ischemic jeison villa
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
[2019-09-16] MEDS ORDERED: ASPIRIN 325 MG TAB PO STA (10:48)
[2019-09-16 10:53] LABS: Partial Thromboplastin Time 24.7 sec (22.0-30.0); Prothrombin Time 10.8 sec (9.0-12.0)
--- NOTE | 2019-09-16 11:06 | CT ---
EXAMINATION TYPE: CT angio head neck DATE OF EXAM: 09/16/2019 HISTORY: Altered mental status COMPARISON: MR knee brain 08/16/2018 CT DLP: 1547.3 mGycm. Automated Exposure Control for Dose Reduction was Utilized. TECHNIQUE: CTA scan of the neck is performed without and with IV Contrast, patient injected with 65 ml mL of Isovue 370, axial images are obtained, coronal and sagittal reformatted images are reviewed. Three-D reconstructed images are created on an independent workstation and reviewed. Source images are reviewed. FINDINGS: Carotid/Vascular Structures: There is a three-vessel arch. Atheromatous plaquing is present at the gr eat vessel origins. Atheromatous plaquing is at the bilateral carotid bifurcations. Significant flow- limiting stenosis within the left internal carotid artery origin is not evident. There is again identified occlusion of the right internal carotid artery at its origin. There is evid ence of contralateral flow with retrograde flow into the ophthalmic artery on the right. Cervical of [place]: Vertebral basilar system appears normal. Posterior cerebral vasculature is unrema rkable. Left Internal carotid artery bifurcates normally into A1 and M1 segments. A2 segments are nor mal. The anterior communicating artery is patent. Left Posterior communicating artery is patent. IMPRESSION: 1. 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 2. No severe stenosis at the left internal carotid artery origin. 3. [place] beyond the occluded right internal carotid artery is unremarkable.
[2019-09-16] MEDS ORDERED: NALOXONE 0.4 MG/ML 1 ML VIAL IV PRN (11:08)
[2019-09-16 12:10] LABS: Amphetamine Screen,Urine Not Detected (NotDetected); Cocaine Screen,Urine Not Detected (NotDetected); Opiate Screen,Urine Not Detected (NotDetected); Phencyclidine Screen,Urine Not Detected (NotDetected); Urn Cannabinoid Scrn Not Detected (NotDetected)
[2019-09-16 12:11] LABS: Barbiturate Screen,Urine Not Detected (NotDetected); Benzodiazepines Screen,Urine Not Detected (NotDetected); Methadone Screen, Urine Not Detected (NotDetected); Oxycodone Screen, Urine Not Detected (NotDetected); Tricyclic Antidepressant,Urine Not Detected (NotDetected)
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
[2019-09-16] MEDS ORDERED: ATORVASTATIN 20 MG TAB PO SCH (21:00)
[2019-09-16] MEDS: levETIRAcetam 500 MG TAB PO SCH (22:31)
[2019-09-16 23:04] VITALS: RESP 18
[2019-09-17 06:32] LABS: Calcium 8.8 mg/dL (8.4-10.2); Potassium 4.2 mmol/L (3.5-5.1)
[2019-09-17] MEDS: levETIRAcetam 500 MG TAB PO SCH (07:54)
[2019-09-17] MEDS ORDERED: ASPIRIN 325 MG TAB PO SCH (09:00)
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
[2019-09-17 11:20] VITALS: BP 161/84; PULSE 70; TEMP 97.5
[2019-09-17] MEDS ORDERED: METOPROLOL TARTRATE 25 MG TAB PO STA (13:24)
--- NOTE | 2019-09-17 13:56 | EEG ---
ELECTROENCEPHALOGRAM REPORT DATE OF SERVICE: 09/17/2019. PREAMBLE: This is a 74-year-old male who has history of a seizure disorder, came with an episode of transient altered mental status, with some mental confusion and inability to name people. This study is performed to evaluate for any epileptiform activity. CURRENT MEDICATIONS: Keppra, Lipitor, and aspirin. EEG FINDINGS: A routine 21 channel awake digital EEG recording was accomplished utilizing the 10/20 international system with bipolar and referential montages. The background consists of well developed, well regulated, moderate amplitude activity in an 8-10 hertz alpha. Background is posterior dominant and reactive to eye opening and closing. There is intermittent dysrhythmic focal delta seen in the left temporal region. Drowsiness was seen with appearance of bilaterally symmetric theta frequency rhythm but deeper stages of sleep was not seen. Photic driving response was not seen. No definitive focal or generalized epileptiform activity was seen. EKG rhythm lead revealed no obvious arrhythmia. IMPRESSION: This is an abnormal EEG due to intermittent slowing in the left temporal region. This is suggestive of focal cortical neural dysfunction. No definitive epileptiform activity was seen. Suggest a prolonged or sleep-deprived EEG for further evaluation. MMODL / IJN: [id number] / [facility]
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
--- NOTE | 2019-09-18 09:33 | ECHOF ---
Referral Reason:hx afib MEASUREMENTS -------- HEIGHT: 182.9 cm WEIGHT: 81.2 kg BP: RVIDd: 3.3 cm (< 3.3) IVSd: 1.5 cm (0.6 - 1.1) LVIDd: 4.1 cm (3.9 - 5.3) LVPWd: 1.4 cm (0.6 - 1.1) IVSs: 1.6 cm LVIDs: 3.4 cm LVPWs: 1.6 cm LAESV Index (A-L): 28.63 ml/m Ao Diam: 3.4 cm (2.0 - 3.7) AV Cusp: 1.4 cm (1.5 - 2.6) LA Diam: 3.3 cm (2.7 - 3.8) MV EXCURSION: 12.495 mm (> 18.000) MV EF SLOPE: 97 mm/s (70 - 150) EPSS: 0.7 cm MV E Juan: 0.75 m/s MV DecT: 168 ms MV A Juan: 0.40 m/s MV E/A Ratio: 1.87 AV maxP.22 mmHg AV meanP.52 mmHg RAP: 5.00 mmHg RVSP: 39.17 mmHg FINDINGS -------- Undetermined rhythm. This was a technically adequate study. The left ventricular size is normal. There is moderate concentric left ventricular hypertrophy. O verall left ventricular systolic function is low-normal with, an EF between 50 - 55 %. The right ventricle is normal in size. The left atrium is mildly dilated. LA is midly dilated 29-33ml/m2. The right atrial size is normal. Peak/mean gradient across the Aortic Valve is 23.22mmHg / 10.52mmHg. Normally functioning bioprosth etic valve. Mild mitral annular calcification present. Mild mitral regurgitation is present. Mild tricuspid regurgitation present. There is mild pulmonary hypertension. The right ventricular systolic pressure, as measured by Doppler, is 39.17mmHg. There is no pulmonic regurgitation present. Ascending Aortic Root is Dilated and measures 4.4cm. There is no pericardial effusion. CONCLUSIONS -------- 1. Undetermined rhythm. 2. This was a technically adequate study. 3. The left ventricular size is normal. 4. There is moderate concentric left ventricular hypertrophy. 5. Overall left ventricular systolic function is low-normal with, an EF between 50 - 55 %. 6. The right ventricle is normal in size. 7. The left atrium is mildly dilated. 8. LA is midly dilated 29-33ml/m2. 9. The right atrial size is normal. 10. Peak/mean gradient across the Aortic Valve is 23.22mmHg / 10.52mmHg. 11. Normally functioning bioprosthetic valve. 12. Mild mitral annular calcification present. 13. Mild mitral regurgitation is present. 14. Mild tricuspid regurgitation present. 15. There is mild pulmonary hypertension. 16. The right ventricular systolic pressure, as measured by Doppler, is 39.17mmHg. 17. There is no pulmonic regurgitation present. 18. Ascending Aortic Root is Dilated and measures 4.4cm. 19. There is no pericardial effusion. EARRING MAKER: Consuelo Chapman RDCS
== END 2019-09-17 15:05 | disposition home or self-care (01) ==
LOC: EC 09:45 → UNDOADMIN 11:08 → INTOOBSV 11:08 → 3SCARD 11:08 → UNDODISIN 09-17 15:05
PROVIDERS: ADMIT Hospitalist; ATTEND Hospitalist
DX: R41.82 Altered mental status, unspecified (principal); I48.0 Paroxysmal atrial fibrillation; E78.5 Hyperlipidemia, unspecified; I49.3 Ventricular premature depolarization; I65.21 Occlusion and stenosis of right carotid artery; N18.3 Chronic kidney disease, stage 3 (moderate); Z79.82 Long term (current) use of aspirin; Z79.899 Other long term (current) drug therapy; Z80.1 Family history of malignant neoplasm of trachea, bronchus and lung; Z86.73 Personal history of transient ischemic attack (TIA), and cerebral infarction without residual deficits; Z87.891 Personal history of nicotine dependence; Z95.2 Presence of prosthetic heart valve
CPT/HCPCS: 96361 ×3; 96360; 99291; 36415; 95816; 93005; 93306; 80053; 80048; 84484; 85025; 85610; 85730; 80306; 71046; 70496; 70450; 70498; G0378 ×2; Q9967

== ENCOUNTER → 2021-01-25 | Outpatient (CLI) | payer MEDICARE | END | disposition home or self-care (01) | LOC: RADCTMAIN 01-20 10:23 | PROVIDERS: ATTEND Surgery | DX: I65.29 Occlusion and stenosis of unspecified carotid artery (principal) | CPT/HCPCS: 82565; 84520 ==

== ENCOUNTER → 2021-11-10 | Outpatient (CLI) | payer MEDICARE ==
--- NOTE | 2021-11-10 11:45 | US ---
EXAMINATION TYPE: US abdomen limited DATE OF EXAM: 11/10/2021 COMPARISON: NONE CLINICAL HISTORY: R22.2 Swelling,Mass,Lump in trunk. Patient states he has felt a lump in his left la teral abdomen near the rib cage for the past year. Patient states he sometimes feels it when he wakes up, but hasn't felt it lately. No obvious abnormality seen at area of concern. IMPRESSION: No distinct abnormality appreciated at the site of clinical concern.
== END | disposition home or self-care (01) ==
LOC: RADUSWWP 10:59
PROVIDERS: ATTEND Family Medicine
DX: R22.2 Localized swelling, mass and lump, trunk (principal)
CPT/HCPCS: 76705

== ENCOUNTER → 2022-09-12 | Outpatient (CLI) | payer MEDICARE ==
--- NOTE | 2022-09-12 16:13 | CT ---
EXAMINATION TYPE: CT abdomen wo con CT DLP: 275.7 mGycm, Automated exposure control for dose reduction was used. DATE OF EXAM: 09/12/2022 3:55 PM COMPARISON: None CLINICAL INDICATION:Male, 77 years old with history of R10.9 UNSPECIFIED ABDOMINAL PAIN; UNSPECIFIED ABDOMINAL PAIN- left sided, just below ribs TECHNIQUE: Axial CT of the abdomen. Sagittal and [facility] Contrast used: None. Oral contrast used: without Oral Contrast FINDINGS: LOWER CHEST: Partially visualized consultations and the aortic valve. ABDOMEN LIVER: Unremarkable GALLBLADDER AND BILE DUCTS: Unremarkable. PANCREAS: Suspected splenule in the pancreatic tail unchanged from 2016. SPLEEN: Unremarkable. ADRENAL GLANDS: Unremarkable. KIDNEYS AND URETERS: No evidence of hydronephrosis or renal calculus. The ureters are unremarkable. STOMACH AND BOWEL: No evidence of bowel obstruction. PERITONEUM: No evidence of pneumoperitoneum or free fluid. VASCULATURE: No evidence of aortic aneurysm. Atherosclerosis of the arterial vasculature. Chronic dis section changes are suggested along the course of the abdominal aorta with displaced medially disloca tions. MUSCULOSKELETAL: No acute osseous abnormalities LYMPH NODES: No gross evidence for lymphadenopathy. SOFT TISSUE/ABDOMINAL WALL: Unremarkable IMPRESSION: 1. No evidence for acute intra-abdominal process. 2. Severe atherosclerosis of the abdominal aorta with questionable displaced calcified thrombus versu s chronic dissection. This can be further evaluated with CTA abdomen and pelvis as clinically necessa ry.
== END | disposition home or self-care (01) ==
LOC: RADCTMAIN 15:26
PROVIDERS: ATTEND Family Medicine
DX: I70.0 Atherosclerosis of aorta (principal)
CPT/HCPCS: 74150

== ENCOUNTER → 2022-10-06 | Outpatient (CLI) | payer MEDICARE | END | disposition home or self-care (01) | LOC: RADCTMAIN 14:52 | PROVIDERS: ATTEND Family Medicine | DX: I70.0 Atherosclerosis of aorta (principal) | CPT/HCPCS: 82565; 84520 ==

== ENCOUNTER 2022-10-10 08:15 | Outpatient (CLI) | payer MEDICARE ==
[2022-10-10] MEDS ORDERED: SODIUM CHLORIDE 0.9% 1,000 ML in EMPTY BAG 1 BAG IV ONE (08:56)
--- NOTE | 2022-10-10 12:00 | CT ---
EXAMINATION TYPE: CT angio abdomen pelvis CT DLP: 646.40 mGycm, Automated exposure control for dose reduction was used. DATE OF EXAM: 10/10/2022 11:38 AM COMPARISON: Abdomen CT 09/12/2022 CLINICAL INDICATION:Male, 77 years old with history of ATHEROSCLEROSIS OF ABD AORTA;Atherosclerosis o f abd aorta TECHNIQUE: Multiple thin slice sub-millimeter images were obtained through the abdomen, and pelvis, a fter administration of contrast. 3-D reconstructed images and maximum intensity projection images we re obtained of the abdomen, and pelvis. CT Contrast: Contrast used:100 ml mL of Isovue 370 without and with IV Contrast, Oral contrast used: without Oral Contrast None FINDINGS: CTA Abdomen and pelvis: Severe atherosclerosis of the aortic valve. The visualized thoracic descendin g aorta mild calcified and noncalcified plaque is present which extends into the abdomen. The origins of the great vessels of the abdominal aorta are patent. There is some mild atherosclerotic plaque na rrowing at of the origin of the left renal artery. The abdominal aorta does demonstrate neural thrombus most pronounced in the infrarenal portion which does demonstrate some calcification which was seen on prior. There is at least 50% stenosis of the ao rta is appreciated on series 6 image 111. Occlusion of the right common iliac artery extending from its origin to the common femoral artery. Th ere is reconstitution at that point the visualized portions of the lower extremity superficial and de ep femoral arteries are patent with atherosclerosis present. LOWER CHEST: No evidence of focal consolidation, pneumothorax or pleural effusion. LIVER: Unremarkable GALLBLADDER AND BILE DUCTS: Unremarkable. PANCREAS: Unremarkable. SPLEEN: Unremarkable. ADRENAL GLANDS: Unremarkable. KIDNEYS AND URETERS: No evidence of hydronephrosis or renal calculus. The ureters are unremarkable. PELVIS BLADDER: Unremarkable REPRODUCTIVE: Unremarkable. ABDOMEN & PELVIS STOMACH AND BOWEL: No evidence of bowel obstruction. PERITONEUM: No evidence of pneumoperitoneum or free fluid. VASCULATURE: No evidence of aortic aneurysm. MUSCULOSKELETAL: No acute osseous abnormalities, mild multilevel disc degeneration changes with osteo phyte formation and facet joint arthropathy. LYMPH NODES: No gross evidence for lymphadenopathy. SOFT TISSUE/ABDOMINAL WALL: Unremarkable IMPRESSION 1. 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 Vascular surgery consultation recommended. 2. 50% stenosis of the infrarenal abdominal aorta secondary to mural thrombus. Vascular surgery consu ltation recommended. 3. Atherosclerotic disease involving abdominal aorta with calcified mural thrombus which correlates w ith prior CT abdomen finding. 4. Mild stenosis of the origin of the left renal artery. 5. No evidence for acute abdominal process.
== END 2022-10-10 12:14 | disposition home or self-care (01) ==
LOC: RADCTMAIN 08:15
PROVIDERS: ATTEND Family Medicine
DX: I74.5 Embolism and thrombosis of iliac artery (principal); I70.1 Atherosclerosis of renal artery; I70.0 Atherosclerosis of aorta
CPT/HCPCS: 82565; 84520; 74174; Q9967

== ENCOUNTER → 2023-04-24 | Outpatient (CLI) | payer MEDICARE ==
--- NOTE | 2023-05-05 00:03 | EM ---
EVENT MONITOR The patient was monitored between the and 30 April 2023. The baseline rhythm shows atrial fibrillation. There was 1 episode that represent sinus mechanism. Single PVCs were noted. No pauses were noted. No symptoms were reported. MMODL / IJN: [id number] /
== END | disposition home or self-care (01) ==
LOC: RADECHMAIN 07:47
PROVIDERS: ATTEND Family Medicine
DX: I48.91 Unspecified atrial fibrillation (principal); I49.3 Ventricular premature depolarization
CPT/HCPCS: 93270

== ENCOUNTER → 2023-05-15 | Outpatient (CLI) | payer MEDICARE ==
--- NOTE | 2023-05-16 11:04 | CA ---
Transthoracic Echo Report Name: Mateo Escobar Age: 78 Gender: M : 1945 Exam Date: 05/15/2023 14:33 Exam Location: [facility] Ht (in): 71 Wt (lb): 165 Ordering Physician: Skyler Samuels MD Attending/Referring Phys: Vaishali Escobar [facility] Customer Contact Specialist Veda Lane RDCS Procedure CPT: Indications: I48.91 UNSPECIFIED ATRIAL FIBRILLATION Cardiac Hx: Technical Quality: Good Contrast 1: Total Dose (mL): Contrast 2: Total Dose (mL): MEASUREMENTS (Male / Female) Normal Values 2D ECHO LV Diastolic Diameter PLAX 4.5 cm 4.2 - 5.9 / 3.9 - 5.3 cm LV Systolic Diameter PLAX 3.0 cm IVS Diastolic Thickness 1.3 cm 0.6 - 1.0 / 0.6 - 0.9 cm LVPW Diastolic Thickness 1.2 cm 0.6 - 1.0 / 0.6 - 0.9 cm LV Relative Wall Thickness 0.6 RV Internal Dim ED PLAX 3.0 cm LVOT Diameter 2.1 cm LA Systolic Diameter LX 3.5 cm 3.0 - 4.0 / 2.7 - 3.8 cm LV Diastolic Volume MOD 4C 107.1 cm??? LV Systolic Volume MOD 4C 53.8 cm??? LV Ejection Fraction MOD 4C 49.7 % LV Cardiac Index MOD 4C 1813.5 cm???/min???m??? LV Diastolic Length 4C 8.4 cm LV Systolic Length 4C 7.1 cm LV Diastolic Volume MOD 2C 94.1 cm??? LV Systolic Volume MOD 2C 45.0 cm??? LV Ejection Fraction MOD 2C 52.2 % LV Cardiac Index MOD 2C 1674.8 cm???/min???m??? LV Diastolic Length 2C 8.1 cm LV Systolic Length 2C 7.0 cm LA Volume 63.1 cm??? 18 - 58 / 22 - 52 cm??? M-MODE Aortic Root Diameter MM 3.6 cm MV E Point Septal Separation 1.2 cm AV Cusp Separation MM 1.6 cm DOPPLER AV Peak Velocity 206.8 cm/s AV Peak Gradient 17.1 mmHg AV Mean Velocity 131.9 cm/s AV Mean Gradient 8.5 mmHg AV Velocity Time Integral 43.8 cm AI Peak Velocity 327.3 cm/s AI Peak Gradient 42.9 mmHg AI Pressure Half Time 613.9 ms LVOT Peak Velocity 94.6 cm/s LVOT Peak Gradient 3.6 mmHg AV Area Cont Eq pk 1.5 cm??? MV Area PHT 3.1 cm??? Mitral E Point Velocity 95.5 cm/s Mitral A Point Velocity 43.2 cm/s Mitral E to A Ratio 2.2 MV Deceleration Time 241.5 ms MV E' Velocity 8.4 cm/s Mitral E to MV E' Ratio 11.4 TR Peak Velocity 3500.0 cm/s TR Peak Gradient 30.7 mmHg Right Ventricular Systolic Press 35.0 mmHg FINDINGS Left Ventricle Left ventricular ejection fraction is estimated at 50-55 %. Left ventricular cavity size normal. Mildly increased septal wall thickness. Right Ventricle Normal right ventricular size. Mild pulmonary hypertension. Right Atrium Normal right atrial size. Left Atrium Mildly increased left atrial volume. Mitral Valve Mitral valve thickened. Mitral annular calcification. Mild mitral regurgitation. Aortic Valve Bovine AOV with mild thickening, max gradient of 17 mmHg and mean gradient of 9 mmHg. Mild Periprosthetic regurrgitation Tricuspid Valve Structurally normal tricuspid valve. Mild tricuspid regurgitation. Pulmonic Valve Structurally normal pulmonic valve. No pulmonic regurgitation. Pericardium Normal pericardium. No pericardial effusion. Aorta Normal size aortic root and proximal ascending aorta. CONCLUSIONS Left ventricular systolic function is fairly well-preserved. Aortic valve bioprosthesis appears to be stable. There is mitral annular calcification with mild mitral regurgitation and tricuspid regurgitation. No significant pulmonary hypertension. No pericardial effusion Previewed by: Dr. Watson Hannah MD (Electronically Signed) Final Date: 16 May 2023 11:03
== END | disposition home or self-care (01) ==
LOC: RADECHMAIN 14:26
PROVIDERS: ATTEND Family Medicine
DX: I08.1 Rheumatic disorders of both mitral and tricuspid valves (principal); I48.91 Unspecified atrial fibrillation; I27.20 Pulmonary hypertension, unspecified
CPT/HCPCS: 93306

== ENCOUNTER → 2024-03-19 | Outpatient (CLI) | payer MEDICARE ==
--- NOTE | 2024-03-19 15:42 | US ---
EXAMINATION TYPE: US carotid duplex BILAT DATE OF EXAM: 03/19/2024 COMPARISON: 08/15/2018 03/11/2015 CLINICAL INDICATION: Male, 78 years old with history of N64.4; Syncopal episodes; Hx of right ICA occ lusion TECHNIQUE: Carotid duplex ultrasound examination. Indirect Doppler criteria was utilized. FINDINGS: EXAM MEASUREMENTS: RIGHT: Peak Systolic Velocity (PSV) cm/sec ----- Right CCA: 67 ----- Right ICA: 0 ----- Right ECA: 173 ICA/CCA ratio: Unable to determine RIGHT: End Diastole cm/sec ----- Right CCA: 7 ----- Right ICA: 0 ----- Right ECA: 16 LEFT: Peak Systolic Velocity (PSV) cm/sec ----- Left CCA: 92 ----- Left ICA: 95 ----- Left ECA: 79 ICA/CCA ratio: 1.0 LEFT: End Diastole cm/sec ----- Left CCA: 21 ----- Left ICA: 24 ----- Left ECA: 11 VERTEBRALS (direction of flow): Right Vertebral: Antegrade Left Vertebral: Antegrade Rhythm: Arrhythmia MOLDED GRID AND PARTS INSPECTOR NOTES: Occlusion of the right ICA; plaque noted in left CCA bulb, elevated velocities in the right ECA IMPRESSION: 1. Atherosclerotic plaque with less than 50% stenosis of the left internal carotid artery. 2. Redemonstration occlusion of the right ICA. 3. At least mild stenosis at the origin of the right ECA. Criteria for Assigning % of Stenosis / Diameter reduction (Estimation based on the indirect measurements of the internal carotid artery velocities (ICA PSV). 1. Normal (no stenosis)=ICA PSV < 125 cm/s: ratio < 2.0: ICA EDV<40 cm/s. 2. Less than 50% stenosis=ICA PSV < 125 cm/s: ratio < 2.0: ICA EDV<40 cm/s. 3. 50 to 69% stenosis=ICA PSV of 125 to 230 cm/s: ration 2.0 ? 4.0: ICA EDV 40-100 cm/s. 4. Greater than 70% stenosis to near occlusion= ICA PSV > 230 cm/s: ratio > 4.0: ICA EDV > 100 cm/s. 5. Near occlusion= ICA PSV velocities may be low or undetectable: variable ratio and ICA EDV. 6. Total occlusion=unable to detect flow.
--- NOTE | 2024-03-19 18:36 | CT ---
EXAMINATION TYPE: CT brain wo con CT DLP: 1147 mGycm, Automated exposure control for dose reduction was used. DATE OF EXAM: 03/19/2024 4:14 PM COMPARISON: CT 09/16/2019. CLINICAL INDICATION:Male, 78 years old with history of Z86.73 PERSONAL HISTORY OF TRANSIENT ISCHMEIC ATTACK, syncope x2 in 2 weeks. TECHNIQUE: Brain: Axial CT images of the brain were obtained with coronal and sagittal reformats created and rev iewed. Contrast used: None. Oral contrast used: None. FINDINGS: Extra-axial spaces: No abnormal extra-axial fluid collections. Basilar cisterns are patent. There is a mildly thickened and increased attenuation appearance of the falx and tentorium, which by itself c an be seen with small subdural hematoma, however in this age group and given stability from the prior CT, is more likely due to chronic thickening and calcification. Ventricular system: Ventricles appear dilated in proportion to the degree of cerebral atrophy. Cerebral parenchyma: No increased attenuation to suggest acute intraparenchymal hemorrhage. The gra y-white matter interface appears maintained. Moderate to severe generalized brain atrophy. Scattere d hypoattenuating areas are seen within the cerebral white matter, nonspecific but most often seen wi th chronic microvascular ischemic changes; moderate/severe in degree. Cerebellum: No acute abnormality. Mass effect: No evidence of mass effect or midline shift. Intracranial vasculature: Atherosclerotic calcifications of the larger arteries near the skull base. Soft tissues: No acute or concerning abnormality. Visualized orbits: Orbital contents appear grossly intact. Calvarium/osseous structures: No evidence of calvarial fracture. Paranasal sinuses and mastoid air cells: Clear. MRI is more sensitive for detecting acute processes such as infarct, and may be considered if clinica lly warranted. IMPRESSION: 1. No CT evidence of an acute intracranial abnormality. 2. Atrophy and chronic microvascular ischemic white matter changes.
== END | disposition home or self-care (01) ==
LOC: RADUSWWP 15:01
PROVIDERS: ATTEND Family Medicine
DX: I70.90 Unspecified atherosclerosis (principal); I65.29 Occlusion and stenosis of unspecified carotid artery; Z86.73 Personal history of transient ischemic attack (TIA), and cerebral infarction without residual deficits
CPT/HCPCS: 70450; 93880

== ENCOUNTER → 2024-05-21 | Outpatient (CLI) | payer MEDICARE ==
--- NOTE | 2024-06-18 13:01 | MR ---
Patient Mateo Escobar ID [id number] Order # Procedure MR brain wo/w con EXAMINATION TYPE: MR brain w con DATE OF EXAM: 05/22/2024 1:19 PM CLINICAL INDICATION: Inpatient. Seizure, Syncope. Abnormal MRA, no flow on the right. COMPARISON: Angio same day TECHNIQUE: Multi planar, multi sequence imaging was performed through the brain including: T1, T2, In version recovery, susceptibility weighted imaging and gradient echo imaging and Diffusion weighted im aging. The patient was then given intravenous contrast and multi planar, T1 fat-saturation images wer e obtained. IV Contrast: cc FINDINGS: Occlusion of the right internal carotid artery as seen on same day angiography with reconst itution. Poor visualization of the right M1 M2 segment segment is less well appreciated on this exam on postcontrast imaging suggesting technique was the cause on angiography. The leigh-white junctions, ventricular system, basal cisterns appear unremarkable. Diffusion-weighted imaging shows no evidence of restricted diffusion to suggest acute/subacute infarct. Intracranial ar terial flow voids are maintained. Midline structures show no abnormality. Scattered foci of high T2 s ignal intensity are seen within the periventricular white matter. The susceptibility weighted images do not reveal any evidence for micro-hemorrhage. After administration of gadolinium, no abnormal enha ncement is seen. The bone marrow signal is within normal limits. Paranasal sinuses and mastoid air cells: No significant paranasal sinus disease. Visualized orbits: Orbital contents are intact. IMPRESSION: 1. Occlusion of the right internal carotid artery as seen on same day angiography with reconstitutio n the [place]. Poor visualization of the right M2/M1 segment is less well appreciated on thi s contrast exam. Finding on prior involving the M1 and M2 segments likely due to slow flow and the MR I technique. 2. No evidence of intracranial mass, acute/subacute infarct, or abnormal enhancement. 3. Nonspecific white matter changes, likely related to small vessel ischemic disease.
--- NOTE | 2024-06-18 15:13 | MR ---
Patient Mateo Escobar ID [id number] Order # Procedure MR angio head wo con EXAMINATION TYPE: MR angio head wo con DATE OF EXAM: 05/21/2024 CLINICAL INDICATION: Inpatient. Seizure, Syncope. Abnormal MRA, no flow on the right. COMPARISON: MRI brain same day. Technical: 3-D [id number] Axial with MIP reconstruction created on a separate workstation.. IV Contrast: None Findings: Vertebral arteries: The vertebral arteries are patent. Vertebral arteries are: Codominant. Basilar artery: The basilar artery is intact. The basilar artery bifurcation is normal. Internal Carotid arteries: Occlusion of the right internal carotid artery with reconstitution at the level of the [place]. The M1/M2 segments of the right MCA are poorly opacified with contrast . The cervical, petrous, cavernous and supraclinoid segments are normal. NAIYAH: Patent with no evidence of aneurysm. ACOM: Present without evidence of aneurysm. MCA: Patent with no evidence of aneurysm. POSTDOCTORAL FELLOW: Patent with no evidence of aneurysm. PCOM: Hypoplastic bilaterally. IMPRESSION: 1. Occlusion of the right internal carotid artery with reconstitution at the level of the [place] f [place]. 2. Poor visualization of the right M1 and M2 segments and beyond possibly due to poor blood flow. 3. No evidence for intracranial aneurysm.
== END | disposition home or self-care (01) ==
LOC: RADMRIMAIN 16:45
PROVIDERS: ATTEND Psychiatry & Neurology Neurology
DX: I65.21 Occlusion and stenosis of right carotid artery (principal); R56.9 Unspecified convulsions; R55 Syncope and collapse; R42 Dizziness and giddiness
CPT/HCPCS: 70544; 70553; A9585

== ENCOUNTER 2024-12-29 15:29 | Emergency (ER) | payer MEDICARE ==
[2024-12-29 15:45] VITALS: RESP 16
--- NOTE | 2024-12-29 15:57 | ED ---
General Adult HPI - General Chief complaint: Syncope Stated complaint: Syncope Time Seen by Provider: 12/29/24 15:35 Source: patient, EMS, RN notes reviewed, old records reviewed Mode of arrival: EMS Limitations: no limitations - History of Present Illness Initial comments: This is a 79-year-old male who presents to the emergency department stating that he was at a mu-ism meeting for about 2-1/2 hours and he was sitting there for that length of time when he stood up he felt dizzy and then fell to the floor according to staff people there he passed out patient himself does not believe he ever was out completely. Patient denies any headache patient denies hitting his head patient has any neck pain. Patient [place] any chest pain palpitations difficulty breathing shortness of breath at any time today. Patient states he did not eat lunch and he did not drink much fluids today. Patient states he has had this happen in the past but he never actually fell over before. Patient has no complaints currently. - Related Data Home Medications Medication Instructions Recorded Confirmed Aspirin EC [Ecotrin] 325 mg PO HS 08/15/18 09/16/19 Previous Rx's Medication Instructions Recorded Atorvastatin [Lipitor] 20 mg PO HS #30 tab 09/17/19 Metoprolol Tartrate [Lopressor] 25 mg PO BID #60 tablet 09/17/19 levETIRAcetam [Keppra] 1,000 mg PO Q12HR #60 tab 09/17/19 Allergies Allergy/AdvReac Type Severity Reaction Status Date / Time No Known Allergies Allergy Verified 09/16/19 11:34 Review of Systems ROS Statement: Those systems with pertinent positive or pertinent negative responses have been documented in the HPI. ROS Other: All systems not noted in ROS Statement are negative. 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 History of Any Multi-Drug Resistant Organisms: None Reported Past Surgical History: Tonsillectomy Additional Past Surgical History / Comment(s): Aortic valve replacement, bicep tendon surgery, shoulder surgery, carpal tunnel Past Anesthesia/Blood Transfusion Reactions: No Reported Reaction Past Psychological History: No Psychological Hx Reported Smoking Status: Former smoker Past Alcohol Use History: Occasional Past Drug Use History: None Reported - Past Family History Father Family Medical History: No Reported History, Cancer Additional Family Medical History / Comment(s): lung CA; Lung removed; blood clot from hip sx (per pt's ) Mother Family Medical History: CVA/TIA General Exam - General Exam Comments Initial Comments: GENERAL: Patient is well-developed and well-nourished. Patient is nontoxic and well-hyd rated and is in no acute distress. ENT: Neck is soft and supple. No significant lymphadenopathy is noted. Oropharynx is clear. Moist mucous membranes. Neck has full range of motion without elicit ing any pain. EYES: The sclera were anicteric and conjunctiva were pink and moist. Extraocular mo vements were intact and pupils were equal round and reactive to light. Eyelids were unremarkable. PULMONARY: Unlabored respirations. Good breath sounds bilaterally. No audible rales rhonchi or wheezing was noted. CARDIOVASCULAR: There is a regular rate and rhythm without any murmurs gallops or rubs. ABDOMEN: Soft and nontender with normal bowel sounds. SKIN: Skin is clear with no lesions or rashes and otherwise unremarkable. NEUROLOGIC: Patient is alert and oriented x3. Cranial nerves II through XII are grossly intact. Motor and sensory are also intact. Normal speech, volume and content. Symmetrical smile. MUSCULOSKELETAL: Normal extremities with adequate strength and full range of motion. LYMPHATICS: No significant lymphadenopathy is noted PSYCHIATRIC: Normal psychiatric evaluation. Limitations: no limitations Course Vital Signs 12/29/24 12/29/24 12/29/24 15:34 15:36 16:07 Temperature 97.6 F 97.6 F Pulse Rate 74 74 Pulse Rate [ 80 Right Sitting] Pulse Rate [ 84 Right Standing] Pulse Rate [ 75 Right Supine] Respiratory 16 16 Rate Blood Pressure 114/72 114/72 Blood Pressure 121/74 [Right Arm Sitting] Blood Pressure 96/66 [Right Arm Standing] Blood Pressure 122/86 [Right Arm Supine] O2 Sat by Pulse 97 97 Oximetry Medical Decision Making - Medical Decision Making EKG is interpreted by myself EKG shows sinus rhythm with occasional PVC rate of 73 bpm OH is 192 QRS is 96 QT interval 399 QTc is 425. Patient's EKG shows no ST segment elevation or depression Was pt. sent in by a medical professional or institution (, PA, LABELING STRATEGIST, urgent care, hospital, or fpc...) When possible be specific @ -No Did you speak to anyone other than the patient for history (EMS, parent, family, police, friend...)? What history was obtained from this source @ -No Did you review nursing and triage notes (agree or disagree)? Why? @ -I reviewed and agree with nursing and triage notes Were old charts reviewed (outside hosp., previous admission, EMS record, old EKG, old radiological studies, urgent care reports/EKG's, fpc records)? Report findings @ -No old charts were reviewed Differential Diagnosis? @ -Differential Syncope: Valvular disease, hypertrophic cardiomyopathy, pulmonary embolism, tamponade, tachycardia, bradycardia, MN, hypovolemia, hemorrhage, dissection, anemia, intracranial hemorrhage, seizure, hypoglycemia, carbon monoxide poisoning, this is not meant to be an all-inclusive list. EKG interpreted by me (3pts min.). @ -As above X-rays interpreted by me (1pt min.). @ -Chest x-ray shows no acute abnormality CT interpreted by me (1pt min.). @ -None done U/S interpreted by me (1pt. min.). @ -None done What testing was considered but not performed or refused? (CT, X-rays, U/S, labs)? Why? @ -None What meds were considered but not given or refused? Why? @ -None Did you discuss the management of the patient with other professionals (professionals i.e. , PA, LABELING STRATEGIST, lab, RT, psych nurse, family welfare social work professor, mulcher operator, teacher, preventive medicine officer, lead case manager)? Give summary @ -No Was smoking cessation discussed for >3mins.? @ -No Was critical care preformed (if so, how long)? @ -No Were there social determinants of health that impacted care today? How? (Homelessness, low income, unemployed, alcoholism, drug addiction, trans portation, low edu. Level, literacy, decrease access to med. care, long term, rehab)? @ -No Was there de-escalation of care discussed even if they declined (Discuss DNR or withdrawal of care, Hospice)? DNR status @ -No What co-morbidities impacted this encounter? (DM, HTN, Smoking, COPD, CAD, Cancer, CVA, ARF, Chemo, Hep., AIDS, mental health diagnosis, sleep apnea, morbid obesity)? @ -None Was patient admitted / discharged? Hospital course, mention meds given and route, prescriptions, significant lab abnormalities, going to OR and other pertinent info. @ -Patient was asymptomatic throughout his ED stay. Patient was able to get up and ambulate. I did give the patient an opportunity to stay overnight he did not want to stay overnight he stated he felt good and he thinks he just did not eat or drink enough today and he was lightheaded when he stood up. Undiagnosed new problem with uncertain prognosis? @ -No Drug Therapy requiring intensive monitoring for toxicity (Heparin, Nitro, Insulin, Cardizem)? @ -No Were any procedures done? @ -No Diagnosis/symptom? @ -Orthostatic syncope Acute, or Chronic, or Acute on Chronic? @ -Acute Uncomplicated (without systemic symptoms) or Complicated (systemic symptoms)? @ -Complicate Side effects of treatment? @ -No Exacerbation, Progression, or Severe Exacerbation? @ -No Poses a threat to life or bodily function? How? (Chest pain, USA, MN, pneumonia, PE, COPD, DKA, ARF, appy, cholecystitis, CVA, Diverticulitis, Homicidal, Suicidal, threat to staff... and all critical care pts) @ -No - Lab Data Result diagrams: 12/29/24 16:01 12/29/24 16:01 Lab Results 12/29/24 12/29/24 12/29/24 Range/Units 16:01 16:01 16:01 WBC 7.0 (3.8-10.6) k/uL RBC 4.64 (4.30-5.90) m/uL Hgb 13.8 (13.0-17.5) gm/dL Hct 41.8 (39.0-53.0) % MCV 90.1 (80.0-100.0) fL MCH 29.8 (25.0-35.0) pg MCHC 33.1 (31.0-37.0) g/dL RDW 13.4 (11.5-15.5) % Plt Count 114 L (150-450) k/uL MPV 8.4 Neutrophils % 82 % Lymphocytes % 10 % Monocytes % 5 % Eosinophils % 1 % Basophils % 1 % Neutrophils # 5.7 (1.3-7.7) k/uL Lymphocytes # 0.7 L (1.0-4.8) k/uL Monocytes # 0.4 (0-1.0) k/uL Eosinophils # 0.1 (0-0.7) k/uL Basophils # 0.1 (0-0.2) k/uL PT 12.2 (10.0-12.5) sec INR 1.1 (<1.2) APTT 24.9 (22.0-30.0) sec Sodium 137 (137-145) mmol/L Potassium 4.4 (3.5-5.1) mmol/L Chloride 105 (98-107) mmol/L Carbon Dioxide 22 (22-30) mmol/L Anion Gap 10 mmol/L BUN 37 H (9-20) mg/dL Creatinine 1.65 H (0.66-1.25) mg/dL Est GFR (CKD-EPI)AfAm 45 (>60 ml/min/1.73 sqM) Est GFR (CKD-EPI)NonAf 39 (>60 ml/min/1.73 sqM) Glucose 96 (74-99) mg/dL Calcium 9.2 (8.4-10.2) mg/dL Magnesium 1.9 (1.6-2.3) mg/dL Total Bilirubin 0.7 (0.2-1.3) mg/dL AST 29 (17-59) U/L ALT 23 (4-49) U/L Alkaline Phosphatase 107 (38-126) U/L Troponin I (0.000-0.034) ng/mL Total Protein 7.0 (6.3-8.2) g/dL Albumin 4.1 (3.5-5.0) g/dL 12/29/24 Range/Units 16:01 WBC (3.8-10.6) k/uL RBC (4.30-5.90) m/uL Hgb (13.0-17.5) gm/dL Hct (39.0-53.0) % MCV (80.0-100.0) fL MCH (25.0-35.0) pg MCHC (31.0-37.0) g/dL RDW (11.5-15.5) % Plt Count (150-450) k/uL MPV Neutrophils % % Lymphocytes % % Monocytes % % Eosinophils % % Basophils % % Neutrophils # (1.3-7.7) k/uL Lymphocytes # (1.0-4.8) k/uL Monocytes # (0-1.0) k/uL Eosinophils # (0-0.7) k/uL Basophils # (0-0.2) k/uL PT (10.0-12.5) sec INR (<1.2) APTT (22.0-30.0) sec Sodium (137-145) mmol/L Potassium (3.5-5.1) mmol/L Chloride (98-107) mmol/L Carbon Dioxide (22-30) mmol/L Anion Gap mmol/L BUN (9-20) mg/dL Creatinine (0.66-1.25) mg/dL Est GFR (CKD-EPI)AfAm (>60 ml/min/1.73 sqM) Est GFR (CKD-EPI)NonAf (>60 ml/min/1.73 sqM) Glucose (74-99) mg/dL Calcium (8.4-10.2) mg/dL Magnesium (1.6-2.3) mg/dL Total Bilirubin (0.2-1.3) mg/dL AST (17-59) U/L ALT (4-49) U/L Alkaline Phosphatase (38-126) U/L Troponin I <0.012 (0.000-0.034) ng/mL Total Protein (6.3-8.2) g/dL Albumin (3.5-5.0) g/dL Disposition Clinical Impression: Orthostatic hypotension Disposition: HOME SELF-CARE Instructions (If sedation given, give patient instructions): Hypotension (ED), Syncope (ED) Is patient prescribed a controlled substance at d/c from ED?: No Referrals: Skyler Samuels MD [Primary Care Provider] - 1-2 days Time of Disposition: 18:06
[2024-12-29 16:17] LABS: Basophils # (A) 0.1 k/uL (0-0.2); Basophils % (A) 1 %; Eosinophils # (A) 0.1 k/uL (0-0.7); Eosinophils % (A) 1 %; HCT 41.8 % (39.0-53.0); HGB 13.8 gm/dL (13.0-17.5); INR 1.1 (<1.2); Lymphocytes # (A) 0.7 k/uL (1.0-4.8); Lymphocytes % (A) 10 %; MCH 29.8 pg (25.0-35.0); MCHC 33.1 g/dL (31.0-37.0); MCV 90.1 fL (80.0-100.0); Mean Platelet Volume 8.4; Monocytes # (A) 0.4 k/uL (0-1.0); Monocytes % (A) 5 %; Neutrophils # (A) 5.7 k/uL (1.3-7.7); Neutrophils % (A) 82 %; Partial Thromboplastin Time 24.9 sec (22.0-30.0); Platelet Count 114 k/uL (150-450); Prothrombin Time 12.2 sec (10.0-12.5); RBC 4.64 m/uL (4.30-5.90); RDW 13.4 % (11.5-15.5)
[2024-12-29] MEDS: SODIUM CHLORIDE 0.9% 1,000 ML IV ONE (16:33)
--- NOTE | 2024-12-29 16:37 | XR ---
EXAMINATION TYPE: XR chest 2V DATE OF EXAM: 12/29/2024 4:32 PM COMPARISON: Chest radiographs from 09/16/2019 CLINICAL INDICATION: Male, 79 years old with history of Chest Pain; TECHNIQUE: XR chest 2V Frontal and lateral views of the chest. FINDINGS: Lungs/Pleura: There is no evidence of pleural effusion, focal consolidation, or pneumothorax. Pulmonary vascularity: Unremarkable. Heart/mediastinum: Cardiomediastinal silhouette is unremarkable. Musculoskeletal: No acute osseous pathology. Midline sternotomy wires are noted. Right rotator cuff fixation anchors. Other findings: None IMPRESSION: No acute cardiopulmonary disease/process. [facility], , 12/29/2024 4:34 PM
[2024-12-29 16:54] LABS: ALT 23 U/L (4-49); AST 29 U/L (17-59); African American GFR (CKD) 45 (>60 ml/min/1.73 sqM); Albumin 4.1 g/dL (3.5-5.0); Alkaline Phosphatase 107 U/L (38-126); Anion Gap 10 mmol/L; Blood Urea Nitrogen 37 mg/dL (9-20); Calcium 9.2 mg/dL (8.4-10.2); Carbon Dioxide 22 mmol/L (22-30); Chloride 105 mmol/L (98-107); Glucose 96 mg/dL (74-99); Magnesium 1.9 mg/dL (1.6-2.3); Non-African American GFR(CKD) 39 (>60 ml/min/1.73 sqM); Potassium 4.4 mmol/L (3.5-5.1); Sodium 137 mmol/L (137-145); Total Bilirubin 0.7 mg/dL (0.2-1.3)
[2024-12-29 18:19] VITALS: BP 137/76; PULSE 80; TEMP 97.9
== END 2024-12-29 18:24 | disposition home or self-care (01) ==
LOC: EC 15:29
DX: I95.1 Orthostatic hypotension (principal); Z87.891 Personal history of nicotine dependence
CPT/HCPCS: 36415; 71046; 80053; 83735; 84484; 85025; 85610; 85730; 93005; 96360; 96361; 99284